=== PATIENT | male | born 1970 ===

== ENCOUNTER 2016-10-22 20:45 | Inpatient (IN) ==
[~2016-10-22 20:45] MED LIST: DOPamine 800 MG/250 ML PREMIX IV STA
[2016-10-22] MEDS ORDERED: DOPamine 800 MG/250 ML PREMIX IV ONE (20:47)
[2016-10-22] MEDS ORDERED: PROPOFOL 1,000 MG/100 ML BOTTLE IV ONE (20:51)
[2016-10-22] MEDS ORDERED: EPINEPHrine 1 MG/10 ML SYRINGE ONE (20:52)
[2016-10-22] MEDS ORDERED: ASPIRIN 325 MG TABLET PO STA (21:10)
[2016-10-22] MEDS ORDERED: PHENYLEPHRINE DRIP 40 MG/250 ML PREMIX IV ONE (21:17)
[2016-10-22] MEDS ORDERED: PHENYLEPHRINE DRIP 40 MG/250 ML PREMIX IV STA (21:20)
--- NOTE | 2016-10-22 21:31 | XRay Report ---
Exam: XR chest 1V portable Date: 10/22/2016 9:10 PM Indication: Chest pain Comparison: 08/17/2015 Technical: AP portable Findings:: Endotracheal tube has been placed. Nasogastric tube has been placed the distal tip appears to be in the distal esophagus. Cardiomegaly is present. A backboard superimposes exam. Alveolar edema and infiltrates are present bilaterally. The epidural catheter leads demonstrated on previous examination are no longer seen. No pneumothorax. Impression: 1. Endotracheal tube at the mid clavicle nasogastric tube in the distal esophagus, advancement the nasogastric tube approximately 4 to 5 cm recommended 2. Alveolar edema in the central perihilar regions and/or infiltrates. 3. Removal of the epidural catheter leads PROCEDURE INTERPRETED AT [facility] DEPARTMENT OF RADIOLOGY Final Report Signed by: Dr. Reji Guillaume
[2016-10-22 21:36] LABS: ABG Base Excess -23.5 MMOL/L (-2.5-2.5); ABG HCO3 7.8 MMOL/L (20-26); ABG Oxygen Saturation 73.7 % (95-100); ABG PCO2 63.1 MM HG (35-48); ABG PO2 66.2 MM HG (80-95); ABG TCO2 11.5 MMOL/L (23-27)
[2016-10-22 21:39] LABS: ABG PH 6.853 (7.35-7.45)
--- NOTE | 2016-10-22 21:39 | Emergency Department Note ---
Gilberto Santiago Sierra, am scribing for, and in the presence of, Lizette Vazquez DO 21:09. IGeorge Catherine, DO, personally performed the services described in this documentation, ascribed by Marisa Macias in my presence, and it is both accurate and complete . Arrival - Arrival Chief Complaint: Shortness of Breath ED Nursing Triage Note: patient received via [facility] with resp. failure. patien intubated and sedated at this time Mode of Arrival: Stretcher Limitations: Physical Limitation (pt is intubated) Source: EMS, RN Notes Reviewed - History of Present Illness HPI Narrative: Pt is a 45 y/o male that arrived at the ED via [place] [facility] for respiratory failure. History unattained due to pt being intubated on the ventilator and sedated upon arrival. EMS reports pt was coded for 15 STICK WELDER and [place] worked the code for 15 minutes. Pt initially had vitals when arrived but went into cardiac arrest again. Onset (ago): minute(s) Consistency: constant Severity: severe Severity scale (1-10): 10 Quality: other Allergies/Adverse Reactions: Allergies Allergy/AdvReac Type Severity Reaction Status Date / Time No Known Allergies Allergy Verified 04/26/15 09:38 Home Medications: Home Medications Medication Instructions Recorded Confirmed Type Gabapentin 600 mg PO DAILY 04/22/15 08/16/15 History HYDROcodone/ACETAMIN 10-325 [Marcella 1 tablet PO TID 04/22/15 12/31/15 History 10-325] Lisinopril [Prinivil] 20 mg PO DAILY 04/22/15 12/28/15 History NovoLOG Mix 70-30 FlexPen 40 units SUBCUT AC BREAKFAST 04/22/15 12/31/15 History NovoLOG Mix 70-30 FlexPen 60 units SUBCUT BEDTIME 04/22/15 12/31/15 History Duloxetine HCl [Duloxetine] 60 mg PO DAILY 08/17/15 12/31/15 History Review of System - Review of System ROS unobtainable: other (ROS unattained due to being intubated and sedated on arrival) Medical,Surgical,& Family Hx - Medical History Cardio: History of: Hypertension Psychological: History of: Depression No history of: Previous Suicide Attempt Neurology: No history of: Seizures HEENT: History of: Dental Problems ([place] coming loose) Endocrine: History of: Diabetes Mellitus (IDDM), Diabetes Mellitus (NIDDM) Respiratory: History of: COPD, Obstructive Sleep Apnea, Pneumonia, Respiratory Problems (resp failure) Genitourinary: History of: Recurring Urinary Tract Infections Gastrointestinal: History of: GERD, GI Problems (Abdominal pain, epigastric pain and dysphagia) Musculoskeletal: History of: Back/Neck Problems (BACK SURGERY), Musculoskeletal Problems (Arthritis) - Surgical History HEENT Surgeries: Surgical HX of: Tonsilectomy & Adenoidectomy (Tonsils) Abdominal Surgeries: Surgical HX of: Abdominal Surgery, Cholecystectomy (2015), Colonoscopy, EGD Reproductive Surgeries: Patient denies;: Genitourinary Surgery Orthopedic Surgeries: Surgical HX of;: Implanted Devices (Spinal cord stimulator RIGHT side), Orthopedic Surgery (back surgery), Spinal Surgery - Family History Family History: Reports;: Family Diabetes (Mother) - Social History Smoking Status: Unknown if ever smoked Marital Status: Unknown Exam - General Exam limited due to: other (pt is intubated and sedated at arrival) General appearance: obtunded - Head Head exam: Present: atraumatic - Eye Eye exam: Present: other (pupils fixed and no corneal reflex noted) - Neck Neck exam: Present: normal inspection - Chest Chest inspection: Present: normal inspection, symmetric chest wall rise - Respiratory Respiratory exam: Present: normal lung sounds bilaterally - Cardiovascular Cardiovascular exam: Present: regular rate, other (wide complex) - Abdominal Exam Abdominal exam: Present: soft, normal bowel sounds. Absent: distention, tenderness, guarding, rebound - Extremities Exam Extremities exam: Present: normal inspection - Neurological Exam Neurological exam: Present: other (unresponsive) - Skin Skin exam: Present: other (cool to touch) Course Course Narrative: This is a 45-year-old male who is transferred in from the [facility] in full cardiac arrest. He was resuscitated initially at their hospital and upon transfer was on a dopamine drip and did have vital signs. Shortly after arriving in the emergency room the patient went into another arrest situation it was an asystolic arrest this time we did do CPR he was given epinephrine with spontaneous return of a pulse and blood pressure. The patient was continued on pressors near was added. We have drawn labs chest x-ray has been obtained. The patient was placed on the cooling blanket. Dr. Perez who is on- call for the hospitalist service has recommended we contact cardiology director validation. Dr. Acuña has been notified and is in the ER evaluating the patient. The patient remains unchanged he has no response whatsoever. He is on 2 pressors at this time and his condition is critical. The plan is as taken to the Certified Technician at this time to see if there are any lesions to be corrected. There are no family members available for any information at this time. - Reevaluation(s) Reevaluation #1: Dr. Perez also notified that he is a polysubstance overdose . - Consultations Consultation #1: Dr. Roberts is in the er to evaluate the patient Critical Care Time Critical Care Time: Yes Total Critical Care Time: 30 Disposition Clinical Impression: Cardiac arrest, Acute NC, Polysubstance abuse Disposition: Still a Patient Condition: Stable Time of Disposition: 21:38
[2016-10-22 21:40] LABS: Basophils % 0.2 % (0.0-0.8); Eosinophils % 0.1 % (0.00-10.9); Hematocrit 35.7 VOL% (42.0-52.0); Hemoglobin 10.7 GM/DL (14.0-18.0); Immature Granulocytes % 1.3 %; Immature Granulocytes Absolute 0.14 #; Lymphocytes # 2.3 10*3/uL (1.4-4.0); Lymphocytes % 20.4 % (21.2-54.2); Mean Corpuscular Hemoglobin 30 PG (27-34); Mean Corpuscular Volume 98.9 FL (87-102); Mean Platelet Volume 9.9 FL (9.6-12.0); Monocytes # 0.2 10*3/uL (0.11-0.8); Monocytes % 1.9 % (1.7-12.7); Neutrophils # 8.4 10*3/uL (1.4-7.4); Neutrophils % 76.1 % (38.7-73.9); Platelet Count 231 T/CUMM (130-400); Red Blood Count 3.61 MC/CUMM (3.8-5.5); Red Cell Distribution Width 12.7 % (9.3-17.3); White Blood Count 11.1 T/CUMM (4-12)
[2016-10-22 21:52] LABS: INR 1.2; PT Patient Result 13.3 SECS
[2016-10-22] MEDS ORDERED: SODIUM BICARBONATE 50 MEQ/50 ML SYRINGE IV ONE (21:58)
[2016-10-22] MEDS ORDERED: ASPIRIN 300 MG SUPP RECTAL ONE (21:59)
[2016-10-22] MEDS ORDERED: SODIUM BICARBONATE 50 MEQ/50 ML VIAL IV STA (22:00)
[2016-10-22 22:03] LABS: Partial Thromboplastin Time 41.1 SECS (0-40)
[2016-10-22] MEDS ORDERED: HEPARIN/NACL 0.9% 2 UNITS/ML 1,500 ML IV ONE (22:05)
[2016-10-22] MEDS ORDERED: LIDOCAINE 1% 20 ML VIAL ONE (22:05)
--- NOTE | 2016-10-22 22:05 | Cardiology History & Physical ---
Assessment and Plan (1) Polysubstance abuse Status: Acute Assessment and plan: He appears to have a drug overdose with multiple substances. Current Visit: Yes (2) Cardiac arrest Status: Acute Assessment and plan: This appears to be related to the polysubstance ingestion. We will rule out a thrombotic event with a cardiac catheterization. Current Visit: Yes (3) Hypertension Status: Chronic Assessment and plan: Currently hypotensive, we will provide supportive care. Current Visit: Yes (4) Diabetes mellitus Status: Chronic Current Visit: No Qualifiers: Diabetes mellitus type: type 2 (5) Renal failure, acute Status: Acute Assessment and plan: Likely secondary to the acute events. Current Visit: Yes (6) Acidemia Status: Acute Assessment and plan: This is likely secondary to his acute events and diffuse hypoperfusion. We'll support him as possible. Current Visit: Yes History of Present Illness Chief complaint: CARDIOPULMONARY ARREST History of present illness: The patient is evaluated emergently in the emergency room. I have discussed the case with the [place] emergency room doctor, the [facility] emergency room doctor, the patient's family, and I have retrieved my previous clinic note from 10/13/2016 from the [facility] to assemble a history on this patient. Mr. Lopez is a 45 year old male without a prior cardiac history. Comorbidities include diabetes mellitus, hypertension, history of grade 3 esophagitis. He was "found down" by a cousin who is a nurse, at his home. I'm told that when she initially palpated his pulse it was weak and thready, she activated EMS and they initiated CPR. Upon their arrival there was no significant pulse or blood pressure so he was intubated and resuscitative measures ensued. He was brought to the emergency room where he "coded" again. He was given some epinephrine and atropine, and thereafter developed ventricular fibrillation which responded to a lidocaine drip. He was then transferred to our hospital, and he "coded" again upon arrival here. This was a bradycardia that degenerated into asystole. At the time of my arrival he is intubated, unresponsive, on dopamine and Alexander-Synephrine pressors. His systolic blood pressures in the mid 80s. He was evaluated in clinic 10/13/2016 by me for presyncope and shortness of breath. He was having spells where he felt weak in the legs and they began to shake as if he was having a seizure, and this caused him to fall. This presentation was complicated by his chronic low back pain and weak legs. He did acknowledge some dyspnea on exertion and a decline in his overall exercise tolerance for the preceding 2 months. He denied any palpitations, tachycardia, arrhythmias, or chest pain. Echocardiogram was performed last week which overall was unremarkable. I'm unable to obtain any further history, other than the patient had been in some pain in his back and legs recently. Laboratory data is reviewed from [facility] which includes a white count of 12.1, hemoglobin 10.9, creatinine 3.9, troponin I 0.18, CK-MB 3.3, myoglobin 689, pro BNP 1636, CPK of 275. EKGs show a wide complex regular sinus rhythm with at times what appears to be a right bundle branch block. Some of the EKG showed suggest some anterior ST elevation. Urine drug screen was positive for multiple substances including PCP and methamphetamines. I have discussed the patient's very grim prognosis with the family. His current pH is 6.9. I have discussed the role, risks and benefits of cardiac catheterization with the patient's family and they voiced understanding. I have told him that he may not survive to the Auto Phone Installer, or through the procedure given his grave presentation. I have also discussed this case with Dr. Devlin who has agreed to accept the patient for admission should he survive. The patient has been placed on the hypothermia protocol. Given his very young age we will proceed with all measures. Because he is in acute renal failure we will try to minimize contrast exposure. Home Medications Medication Instructions Recorded Confirmed Type Gabapentin 600 mg PO DAILY 04/22/15 08/16/15 History HYDROcodone/ACETAMIN 10-325 [[place] 1 tablet PO TID 04/22/15 12/31/15 History 10-325] Lisinopril [Prinivil] 20 mg PO DAILY 04/22/15 12/28/15 History NovoLOG Mix 70-30 FlexPen 40 units SUBCUT AC BREAKFAST 04/22/15 12/31/15 History NovoLOG Mix 70-30 FlexPen 60 units SUBCUT BEDTIME 04/22/15 12/31/15 History Duloxetine HCl [Duloxetine] 60 mg PO DAILY 08/17/15 12/31/15 History Allergies Allergy/AdvReac Type Severity Reaction Status Date / Time No Known Allergies Allergy Verified 04/26/15 09:38 ROS unobtainable: due to endotracheal tube, due to mental status Medical,Surgical,& Family Hx - Medical History Cardio: History of: Hypertension Psychological: History of: Depression No history of: Previous Suicide Attempt Neurology: No history of: Seizures HEENT: History of: Dental Problems ([place] coming loose) Endocrine: History of: Diabetes Mellitus (IDDM), Diabetes Mellitus (NIDDM) Respiratory: History of: COPD, Obstructive Sleep Apnea, Pneumonia, Respiratory Problems (resp failure) Genitourinary: History of: Recurring Urinary Tract Infections Gastrointestinal: History of: GERD, GI Problems (Abdominal pain, epigastric pain and dysphagia) Musculoskeletal: History of: Back/Neck Problems (BACK SURGERY), Musculoskeletal Problems (Arthritis) - Surgical History HEENT Surgeries: Surgical HX of: Tonsilectomy & Adenoidectomy (Tonsils) Abdominal Surgeries: Surgical HX of: Abdominal Surgery, Cholecystectomy (2015), Colonoscopy, EGD Reproductive Surgeries: Patient denies;: Genitourinary Surgery Orthopedic Surgeries: Surgical HX of;: Implanted Devices (Spinal cord stimulator RIGHT side), Orthopedic Surgery (back surgery), Spinal Surgery - Family History Family History: Reports;: Family Diabetes (Mother) - Social History Smoking Status: Unknown if ever smoked Frequency of Alcohol Use: Unknown Type of Drug Use: Unknown Marital Status: Single Lives With:: aunt Functional capacity: independent ambulation Cardiology Physical Exam - Constitutional Vitals: Vital Signs Temp Pulse Resp BP Pulse Ox 92 F L 63 16 68/36 72 L 10/22/16 20:45 10/22/16 20:45 10/22/16 21:30 10/22/16 20:45 10/22/16 20:45 Intake and Output 10/22/16 10/22/16 10/22/16 07:59 15:59 23:59 Other: Weight 108.862 kg Patient Weight 10/22/16 23:59 Weight 108.862 kg Exam: General appearance: normal weight, no acute distress, intubated, unresponsive. - Head Head exam: Present: normocephalic, atraumatic,. Absent: hematoma, laceration - Eye Eye exam: Absent: conjunctival injection, nystagmus, periorbital swelling, scleral icterus, laceration to eyelids Pupils: Present: Pupils are dilated bilaterally and only minimally responsive, he is status post atropine administration. Absent: constricted, irregular, unequal - ENT ENT exam: Present: normal exam, normal external ear exam - Neck Neck exam: Present: Endotracheal tube in place. Absent: lymphadenopathy, meningismus, tenderness, thyromegaly - Respiratory Respiratory exam: Present: clear to auscultation bilaterally anteriorly, there is normal rise with ventilated breaths. Absent: accessory muscle use - Cardiovascular Cardiovascular exam: Present: regular rate and rhythm. Absent: carotid bruit, gallop, JVD, rubs - GI/Abdominal GI/Abdominal exam: Present: Hypoactive bowel sounds. Absent: distended, firm, guarding, hernia, mass, tenderness, rebound, soft - Extremities Exam Extremities exam: Present: They're cold with minimally palpable pulses in all 4 extremities. Absent: edema - Back Exam Back exam: Unable to assess due to patient being on the ventilator - Neurological Exam Neurological exam: Unable to fully assess due to patient being on the ventilator. She does appear to move all 4 extremities. - Psychiatric Psychiatric exam: Unable to assess due to patient being on the ventilator. - Skin Skin exam: Present: Pale, cool, dry, intact. Absent: cyanosis, diaphoretic, rash, urticaria Result/EKG - Labs CBC & BMP: 10/22/16 21:37 Lab Results: I have reviewed the past 24 hour labs Labs: Laboratory Results - last 24 hr 10/22/16 10/22/16 21:34 21:37 WBC 11.1 RBC 3.61 L Hgb 10.7 L Hct 35.7 L MCV 98.9 MCH 30 MCHC 30.0 L RDW 12.7 Plt Count 231 MPV 9.9 Neut % (Auto) 76.1 H Lymph % (Auto) 20.4 L Wharton % (Auto) 1.9 Eos % (Auto) 0.1 Baso % (Auto) 0.2 Neut # (Auto) 8.4 H Lymph # (Auto) 2.3 Wharton # (Auto) 0.2 Eos # (Auto) 0.0 Baso # (Auto) 0.0 Immature Gran % 1.3 Nucleated RBC % 0.0 Immature Gran # 0.14 Nucleated RBCs # 0.00 ABG pH 6.853 L* ABG pCO2 63.1 H ABG pO2 66.2 L ABG HCO3 7.8 L ABG Total CO2 11.5 L ABG O2 Saturation 73.7 L ABG Base Excess -23.5 L - Diagnostic Findings Procedure: Chest x-ray: report reviewed by me, image reviewed by me - EKG EKG results: interpreted by me, sinus rhythm (wide complex with some right bundle branch block, some anterior ST elevation)
[2016-10-22] MEDS ORDERED: SODIUM BICARBONATE 2.4 MEQ/5 ML VIAL ONE ×2 (22:06→22:36)
[2016-10-22 22:10] LABS: Bilirubin,Total 0.6 MG/DL (0.2-1.0); Calcium 8.5 MG/DL (8.5-10.1); Osmolality,Calculated 291.4 MOS/KG (273-304); Potassium 4.2 MMOL/L (3.5-5.1); Total Protein 6.2 G/DL (6.4-8.3)
[2016-10-22] MEDS ORDERED: DEXTROSE 50% 25 GM/50 ML VIAL IV PRN (23:02)
[2016-10-22] MEDS ORDERED: GLUCAGON 1 MG VIAL IM PRN (23:02)
[2016-10-22 23:05] LABS: ABG Base Excess -18.8 MMOL/L (-2.5-2.5); ABG HCO3 10.3 MMOL/L (20-26); ABG Oxygen Saturation 71.2 % (95-100); ABG PCO2 58.3 MM HG (35-48); ABG PO2 54.7 MM HG (80-95); ABG TCO2 13.4 MMOL/L (23-27)
[2016-10-22] MEDS: SODIUM BICARB INJ 100 MEQ in SODIUM CHLORIDE 0.45% 1,000 ML IV SCH (23:06)
[2016-10-22 23:08] LABS: ABG PH 6.974 (7.35-7.45)
--- NOTE | 2016-10-22 23:15 | Cardiology Operative Report ---
Date of Procedure:: 10/22/16 Pre-op diagnosis: cardiopulmonary arrest Post-op diagnosis: other (angiographically normal right dominant coronary arteries) Procedure: 1. Selective left and right coronary angiography. 2. Placement of right femoral central venous triple-lumen catheter. Impression: 1. [ Angiographically normal coronary arteries.] 2. Left dominant coronary arteries. Plan: 1. Supportive care. Equipment: [Diagnostic 4 [place] JL4, JR4 catheters, triple-lumen catheter]. Hemodynamics: Aortic pressure [57/45] mmHg[] Procedure: After informed consent was obtained the patient was prepped and draped in sterile fashion. The [right] femoral vein was accessed via modified Seldinger technique using a micropuncture needle and a triple-lumen catheter was placed. Thereafter, the right femoral artery was accessed via modified Seldinger technique using a micropuncture needle and a 4 [place]ian femoral arterial sheath was placed. All catheter exchanges were performed over a guidewire under fluoroscopic guidance. Diagnostic [6 [place]ian JL4 and JR4] catheters were advanced to the left and right coronary arteries respectively and multiple cineangiograms were performed in varying degrees of obliquity and angulation. Findings: 1. The left main artery [is angiographically normal]. 2. The left anterior descending artery [extends to the apex and wraps around.] [It is angiographically normal.] 3. There [is] an intermediate ramus branch that is a moderate caliber, branching, and free of significant disease. 4. The circumflex artery is a dominant vessel, and angiographically normal. It gives rise to the posterolateral and posterior descending arteries. 5. The right coronary artery is a small, nondominant vessel, angiographically normal. Contrast use: Visipaque 33 cc Fluoro time: 1.3 minutes Complications: [none] Specimens removed: [none] Devices implanted: Arterial sheath left in place for a line use, triple-lumen catheter left in place to administer IV medications. Anesthesia: other (none, pt unresponsive) Surgeon / Physician: Flora Acuña Outsole Molder: none (Stu Luque) Estimated blood loss: minimal Specimens: none sent Condition: critical Disposition: ICU/CCU
[2016-10-22] MEDS ORDERED: HEPARIN/NACL 0.9% 2 UNITS/ML 500 ML IV ONE (23:21)
--- NOTE | 2016-10-22 23:39 | Hospitalist History & Physical ---
Assessment and Plan (1) Cardiac arrest Status: Acute Current Visit: Yes (2) Acute respiratory failure with hypoxia Status: Acute Current Visit: Yes (3) Anoxic brain injury Status: Acute Current Visit: Yes (4) Acute renal failure Status: Acute Current Visit: Yes Qualifiers: Acute renal failure type: with acute tubular necrosis Qualified Code(s): N17.0 - Acute kidney failure with tubular necrosis (5) Polysubstance abuse Status: Acute Current Visit: Yes (6) Diabetes mellitus Status: Chronic Current Visit: No Qualifiers: Diabetes mellitus type: type 2 (7) Hypertension Status: Chronic Assessment and plan: Plan: Admit to ICU, prognosis overall is poor. He is now on maximum dose of 2 pressors, and has been unresponsive with fixed and dilated pupils. CT of the brain is pending. We have begun targeted temperature management in addition to ventilatory support. He is showing evidence of multiorgan failure given his cardiac arrest, respiratory failure, anoxic brain injury, and acute renal failure. Dr. Acuña has Felipe spoken to the family about his grim prognosis. Current Visit: Yes History of Present Illness Chief complaint: Status post cardiac arrest, "found down at home" History of present illness: Mr. Lopez is a 45 year old [place] male with diabetes, hypertension, and esophagitis. He was "found down" at home by a family member who is also a nurse. According to my discussion with the hide sorter and the ER nurse, family member started CPR immediately and called EMS, and on their arrival he was intubated. He was brought to the outside ER where he lost a pulse and was coded again. He apparently developed V. fib which responded to a lidocaine infusion. He was then transferred to our hospital, and he had an asystole arrest in our emergency room. On my exam he is intubated, on 2 pressors and unresponsive. His systolic blood pressure is approximately 70s-80s. He was evaluated in clinic 10/13/2016 by me for presyncope and shortness of breath. Echocardiogram was performed last week which overall was unremarkable. Patient cannot provide history due to his current unresponsive state, family was not able to be reached during my exam. According to cardiology's interpretation, EKGs show a wide complex regular sinus rhythm with at times what appears to be a right bundle branch block. Some of the EKG showed suggest some anterior ST elevation. Urine drug screen is positive for PCP and methamphetamines. I discussed the case with Dr. Acuña who took him for left heart cath which showed angiographically unremarkable coronary arteries. I agreed to admit the patient to the hospitalist service. We have begun targeted temperature management. CODE BLUE note: Around 1120 p.m. the patient was transferred to the ICU at which time he again lost the pulse. ACLS was immediately started, and after 1 round of epinephrine chest compressions for approximately 3-4 minutes, he regained spontaneous circulation. Time coordinating care in the ICU as well as running the CODE BLUE was approximately 30 minutes. Home Medications Medication Instructions Recorded Confirmed Type Gabapentin 600 mg PO DAILY 04/22/15 08/16/15 History HYDROcodone/ACETAMIN 10-325 [[place] 1 tablet PO TID 04/22/15 12/31/15 History 10-325] Lisinopril [Prinivil] 20 mg PO DAILY 04/22/15 12/28/15 History NovoLOG Mix 70-30 FlexPen 40 units SUBCUT AC BREAKFAST 04/22/15 12/31/15 History NovoLOG Mix 70-30 FlexPen 60 units SUBCUT BEDTIME 04/22/15 12/31/15 History Duloxetine HCl [Duloxetine] 60 mg PO DAILY 08/17/15 12/31/15 History Allergies Allergy/AdvReac Type Severity Reaction Status Date / Time No Known Allergies Allergy Verified 04/26/15 09:38 Medical,Surgical,& Family Hx - Medical History Cardio: History of: Hypertension Psychological: History of: Depression No history of: Previous Suicide Attempt Neurology: No history of: Seizures HEENT: History of: Dental Problems ([place] coming loose) Endocrine: History of: Diabetes Mellitus (IDDM), Diabetes Mellitus (NIDDM) Respiratory: History of: COPD, Obstructive Sleep Apnea, Pneumonia, Respiratory Problems (resp failure) Genitourinary: History of: Recurring Urinary Tract Infections Gastrointestinal: History of: GERD, GI Problems (Abdominal pain, epigastric pain and dysphagia) Musculoskeletal: History of: Back/Neck Problems (BACK SURGERY), Musculoskeletal Problems (Arthritis) - Surgical History HEENT Surgeries: Surgical HX of: Tonsilectomy & Adenoidectomy (Tonsils) Abdominal Surgeries: Surgical HX of: Abdominal Surgery, Cholecystectomy (2015), Colonoscopy, EGD Reproductive Surgeries: Patient denies;: Genitourinary Surgery Orthopedic Surgeries: Surgical HX of;: Implanted Devices (Spinal cord stimulator RIGHT side), Orthopedic Surgery (back surgery), Spinal Surgery Additional Surgical History: Unable to obtain due to patient being unresponsive/ intubated - Family History Family History: Reports;: Family Diabetes (Mother) - Social History Smoking Status: Unknown if ever smoked Frequency of Alcohol Use: Unknown Type of Drug Use: Unknown Marital Status: Unknown Review of systems: Unable to obtain due to patient intubated Exam - Constitutional Exam: EXAM: CONSTITUTIONAL: Intubated, comatose HEENT: NC, AT, pupils 4-5 mm and unresponsive CV: RRR no m/g/r RESP: clear B/L, no w/r/r GI: abd soft, ND, + hypoactive bowel sounds INTEGUMENTARY: no lesions or rash EXTREMITIES: no c/c/e NEURO: No corneal reflex, no gag reflex, pupils fixed and dilated PSYCH: Unable to obtain due to current mental status/intubated Results - Labs CBC & BMP: 10/22/16 21:37 10/22/16 20:45 Lab Results: I have reviewed the past 24 hour labs - EKG EKG shows: sinus rhythm - Diagnostic Findings Procedure: Chest x-ray: image reviewed by me, report reviewed by me, CT: pending
[2016-10-23] MEDS ORDERED: INSULIN REGULAR 100 UNIT/ML SUBCUT SCH
[2016-10-23] MEDS ORDERED: INSULIN REGULAR 100 UNIT/ML IV SCH
[2016-10-23 00:16] LABS: ABG Base Excess -16.5 MMOL/L (-2.5-2.5); ABG HCO3 14.5 MMOL/L (20-26); ABG Oxygen Saturation 76.6 % (95-100); ABG PCO2 58.1 MM HG (35-48); ABG PO2 58.3 MM HG (80-95); ABG TCO2 16.2 MMOL/L (23-27)
[2016-10-23 00:18] LABS: ABG PH 7.014 (7.35-7.45)
[2016-10-23] MEDS ORDERED: fentaNYL 100 MCG/2 ML VIAL IV ONE (00:27)
[2016-10-23] MEDS ORDERED: SODIUM CHLORIDE 0.9% 1,000 ML IV ONE (00:27)
[2016-10-23] MEDS ORDERED: MIDAZOLAM 2 MG/2 ML VIAL IV ONE (00:28)
[2016-10-23] MEDS: fentaNYL INJ 1,250 MCG in SODIUM CHLORIDE 0.9% 225 ML IV SCH ×5 (00:30→23:25)
[2016-10-23] MEDS: CISATRACURIUM 200 MG in SODIUM CHLORIDE 0.9% 100 ML IV SCH ×2 (00:31→23:26)
[2016-10-23] MEDS: MIDAZOLAM 100 MG in SODIUM CHLORIDE 0.9% 80 ML IV SCH ×2 (00:33→23:25)
[2016-10-23] MEDS: PANTOPRAZOLE 40 MG VIAL IV SCH ×3 (00:35→21:15)
[2016-10-23] MEDS: DOPamine 800 MG/250 ML PREMIX IV SCH ×5 (00:42→23:45)
[2016-10-23] MEDS ORDERED: INSULIN REGULAR DRIP 100 ML IV ONE (01:53)
[2016-10-23] MEDS ORDERED: PHENYLEPHRINE DRIP 40 MG/250 ML PREMIX IV SCH ×2 (02:00)
[2016-10-23] MEDS: INSULIN REGULAR DRIP 100 ML IV SCH ×4 (02:17→22:43)
[2016-10-23 02:33] LABS: Platelet Estimate Normal
[2016-10-23 03:41] LABS: ABG Base Excess -17.8 MMOL/L (-2.5-2.5); ABG HCO3 11.2 MMOL/L (20-26); ABG Oxygen Saturation 85.1 % (95-100); ABG PCO2 46.9 MM HG (35-48); ABG PO2 66.4 MM HG (80-95); ABG TCO2 12.4 MMOL/L (23-27)
[2016-10-23 03:43] LABS: ABG PH 7.048 (7.35-7.45)
[2016-10-23 03:58] LABS: Risk Ratio 2.5; VLDL CHOLESTEROL 30.8 MG/DL
[2016-10-23 04:08] LABS: Hematocrit 36.8 VOL% (42.0-52.0); Hemoglobin 11.6 GM/DL (14.0-18.0); Lymphocytes # 0.5 10*3/uL (1.4-4.0); Mean Corpuscular HGB Conc 31.5 GM/DL (32-36); Mean Corpuscular Hemoglobin 30 PG (27-34); Mean Corpuscular Volume 94.6 FL (87-102); Monocytes # 0.1 10*3/uL (0.11-0.8); Monocytes % 2.5 % (1.7-12.7); Neutrophils # 2.2 10*3/uL (1.4-7.4); Neutrophils % 80.5 % (38.7-73.9); Platelet Count 255 T/CUMM (130-400); Red Blood Count 3.89 MC/CUMM (3.8-5.5); Red Cell Distribution Width 12.8 % (9.3-17.3); White Blood Count 2.8 T/CUMM (4-12)
[2016-10-23] MEDS: PHENYLEPHRINE INJ 160 MG in SODIUM CHLORIDE 0.9% 234 ML IV SCH ×2 (04:21→23:14)
[2016-10-23 04:23] LABS: INR 1.3; Partial Thromboplastin Time 36.5 SECS (0-40)
[2016-10-23 04:50] LABS: Magnesium 2.1 MG/DL (1.8-2.4); Osmolality,Calculated 294.4 MOS/KG (273-304); Phosphorous 10.7 MG/DL (2.5-4.9); Potassium 4.5 MMOL/L (3.5-5.1)
[2016-10-23 04:59] LABS: Hypochromasia Slight
[2016-10-23 05:00] LABS: Platelet Estimate Adequate
--- NOTE | 2016-10-23 07:21 | EKG Report ---
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: : 1970 Requested by: Lizette Vazquez Order Number: [id number] Reading MD: TERESO ALVARES Intervals [place] Rate: 78 P: -6 DE: 215 QRS: 75 QRSD: 143 T: 16 QT: 504 QTc: 537 Interpretive Statements SINUS RHYTHM WITH FIRST-DEGREE AVB, WITH FREQUENT SUPRAVENTRICULAR PREMATURE COMPLEXES at 78 bpm INTRAVENTRICULAR CONDUCTION DELAY TYPE 1 BRUGADA PATTERN, EXCLUDE RECENT INFARCTION, CABG, MYOCARDITIS OR DRUG EFFECT (prolonged QTC and conduction delay were not present on previous tracing 08/17/2015) Electronically Signed On 10-24-16 09:55:08 CDT by TERESO ALVARES [id number]
--- NOTE | 2016-10-23 07:24 | Pulmonology Consult Note ---
Assessment and Plan (1) Acute renal failure Status: Acute Assessment and plan: Creatinine is 3.9 slightly better than yesterday. Defer to nephrology. Current Visit: Yes Qualifiers: Acute renal failure type: with acute tubular necrosis Qualified Code(s): N17.0 - Acute kidney failure with tubular necrosis (2) Acute respiratory failure with hypoxia Status: Acute Assessment and plan: Patient remains severely acidotic. He is getting bicarb. I will turn up minute ventilation a little. The acidosis is combined respiratory and metabolic. Current Visit: Yes (3) Anoxic brain injury Status: Acute Assessment and plan: His pupils are dilated and fixed. He is totally unresponsive. He is on Arctic sun. Giving him a couple of days to see if his brain will come around. However prognosis appears poor to me. Current Visit: Yes (4) Cardiac arrest Status: Acute Assessment and plan: He has apparently had 3 cardiac arrest. The cause of the arrest was felt to the polysubstance abuse. No significant coronary disease found at cath. Current Visit: Yes (5) Polysubstance abuse Status: Acute Assessment and plan: Likely the cause of his arrest. Current Visit: Yes (6) Diabetes mellitus Status: Chronic Assessment and plan: Sliding scale insulin. Current Visit: No Qualifiers: Diabetes mellitus type: type 2 History of Present Illness Chief complaint: Cardiac arrest History of present illness: Mr. Lopez is a 45 year old male who apparently has had 3 different cardiac arrest. He was found at home unresponsive and had CPR started at home yesterday. He was intubated by emergency personnel and then had another arrest in [place] and 1 here as I understand. He currently is on the ventilator is totally unresponsive. He had cardiac catheterization yesterday with no significant coronary disease found. He did have positive urine for PCP and methamphetamines, multiple substances. He has a history of chronic pain as implanted in his back for radicular pain. He is not able to give any history at present. I was asked to see him for ventilator management. Home Medications Medication Instructions Recorded Confirmed Type Gabapentin 600 mg PO DAILY 04/22/15 08/16/15 History HYDROcodone/ACETAMIN 10-325 [[place] 1 tablet PO TID 04/22/15 12/31/15 History 10-325] Lisinopril [Prinivil] 20 mg PO DAILY 04/22/15 12/28/15 History NovoLOG Mix 70-30 FlexPen 40 units SUBCUT AC BREAKFAST 04/22/15 12/31/15 History NovoLOG Mix 70-30 FlexPen 60 units SUBCUT BEDTIME 04/22/15 12/31/15 History Duloxetine HCl [Duloxetine] 60 mg PO DAILY 08/17/15 12/31/15 History Allergies Allergy/AdvReac Type Severity Reaction Status Date / Time No Known Allergies Allergy Verified 04/26/15 09:38 ROS unobtainable: due to endotracheal tube, due to mental status Exam (Pulmonay) H&P - Constitutional Vitals: Period Temp Pulse Resp BP Sys/Sequeira Pulse Ox Last 24 Hr 90.2 F-95.5 F 77-108 20-20 100-173/39-84 75-94 Exam: Blood pressure is around 120 systolic but he is on 2 pressors. His pupils were dilated and fixed. Patient is totally unresponsive. He is on the [employer] cooling system. Temperature is about 92, respirations that of the ventilator which is 20. Orotracheal tube in place. Neck supple. Chest shows a few rhonchi bilaterally. Heart rapid rate normal rhythm no murmurs. Abdomen soft, no masses, no bowel sounds. Extremities no clubbing cyanosis or edema. Medical,Surgical,& Family Hx - Medical History Cardio: History of: Hypertension Psychological: History of: Depression No history of: Previous Suicide Attempt Neurology: No history of: Seizures HEENT: History of: Dental Problems ([place] coming loose) Endocrine: History of: Diabetes Mellitus (IDDM), Diabetes Mellitus (NIDDM) Respiratory: History of: COPD, Obstructive Sleep Apnea, Pneumonia, Respiratory Problems (resp failure) Genitourinary: History of: Recurring Urinary Tract Infections Gastrointestinal: History of: GERD, GI Problems (Abdominal pain, epigastric pain and dysphagia) Musculoskeletal: History of: Back/Neck Problems (BACK SURGERY), Musculoskeletal Problems (Arthritis) - Surgical History HEENT Surgeries: Surgical HX of: Tonsilectomy & Adenoidectomy (Tonsils) Abdominal Surgeries: Surgical HX of: Abdominal Surgery, Cholecystectomy (2015), Colonoscopy, EGD Reproductive Surgeries: Patient denies;: Genitourinary Surgery Orthopedic Surgeries: Surgical HX of;: Implanted Devices (Spinal cord stimulator RIGHT side), Orthopedic Surgery (back surgery), Spinal Surgery - Family History Family History: Reports;: Family Diabetes (Mother) - Social History Smoking Status: Unknown if ever smoked Frequency of Alcohol Use: Unknown Type of Drug Use: Unknown Results - Labs CBC & BMP: 10/23/16 03:15 10/23/16 03:12 Lab Results: I have reviewed the past 24 hour labs - Diagnostic Findings Procedure: Chest x-ray: image reviewed by me (Patchy bilateral infiltrates. ET tube good position.)
[2016-10-23] MEDS: HYDROCORTISONE 100 MG VIAL IV SCH ×3 (07:40→23:21)
--- NOTE | 2016-10-23 07:41 | XRay Report ---
Referring Physician: Flora Acuña MD Exam: XR chest 1V portable Date: October 23, 2016 at 3:07 AM Reason: Intubated Comparison: Chest one view portable October 22, 2016 Findings: An endotracheal tube and feeding tube are again in place. There is borderline cardiomegaly. Scattered opacities are present within both lungs. This likely represents atelectasis and pulmonary edema, but superimposed pneumonia is not excluded. No pneumothorax is identified, but there may be minimal right pleural fluid. The osseous structures appear stable. Impression: There is improved aeration of the left lung, but there may be slight increased opacification/atelectasis at the right upper lobe. Comparison is somewhat difficult due to overlying devices. PROCEDURE INTERPRETED AT [facility] DEPARTMENT OF RADIOLOGY Final Report Signed by: Dr. Norm Brooks
[2016-10-23] MEDS: CLINDAMYCIN INJ 600 MG in PREMIX 1 EACH IV SCH ×3 (07:45→23:21)
[2016-10-23] MEDS: SODIUM BICARB INJ 100 MEQ in SODIUM CHLORIDE 0.45% 1,000 ML IV SCH ×3 (08:05→21:13)
[2016-10-23] MEDS ORDERED: INSULIN REGULAR 100 UNIT/ML IV ONE (08:25)
[2016-10-23] MEDS ORDERED: LEVOFLOXACIN INJ 250 MG in PREMIX 1 EACH IV SCH (09:00)
--- NOTE | 2016-10-23 09:14 | Hospitalist Progress Note ---
Assessment and Plan (1) Anoxic brain injury Status: Acute Assessment and plan: 1)S/P multiple cardiac arrest with no sig CAD at cath yesterday- on arctic sun, follow protocol, prognosis grim. He was positive for PCP, meth, etc. On merry and dopamine. 2)diabetes- on insulin infusion, bolus with 10U regular now and continue to follow protocol. wean dopamine since it is mixed in D5. 3)respiratory failure- on vent, per Dr Villalobos. 4)mixed resp and metabolic acidosis. getting bicarb. Current Visit: Yes (2) Thrombocythemia Status: Acute Current Visit: No (3) Cardiac arrest Status: Acute Current Visit: Yes (4) Acute [place] Status: Acute Current Visit: Yes (5) Polysubstance abuse Status: Acute Current Visit: Yes (6) Hypertension Status: Chronic Current Visit: Yes (7) Acidemia Status: Acute Current Visit: Yes (8) Acute respiratory failure with hypoxia Status: Acute Current Visit: Yes (9) Acute renal failure Status: Acute Current Visit: Yes Qualifiers: Acute renal failure type: with acute tubular necrosis Qualified Code(s): N17.0 - Acute kidney failure with tubular necrosis (10) Diabetes mellitus Status: Chronic Current Visit: No Qualifiers: Diabetes mellitus type: type 2 Hospitalist: Subjective Interval history: Mr Lopez remains on Arctic sun in cooling phase. He is sedated with versed, fentanyl, and nimbex. Unresponsive. Poor UOP. He had 3 arrests yesterday, prognosis grim. Glucose remains elevated, pharmacy not able to get dopamine in anything other than D5. On insulin drip, use bolus intermittently to get glucose down. Exam - Constitutional Vitals: Period Temp Pulse Resp BP Sys/Sequeira Pulse Ox Last 24 Hr 90.2 F-95.5 F 77-108 20-22 100-173/39-85 75-94 General appearance: no acute distress, over weight - Head Head exam: Present: normocephalic, atraumatic - Eye Eye exam: Absent: EOMI Pupils: Present: fixed - Respiratory Respiratory exam: Present: clear to auscultation bilaterally - Cardiovascular Cardiovascular exam: Present: regular rate and rhythm - GI/Abdominal GI/Abdominal exam: Present: hypoactive bowel sounds, soft. Absent: tenderness - Extremities Exam Extremities exam: Absent: edema - Skin Skin exam: Present: other (cool) Results - Labs CBC & BMP: 10/23/16 03:15 10/23/16 03:12 Lab Results: I have reviewed the past 24 hour labs
[2016-10-23 09:20] LABS: Hematocrit 34.6 VOL% (42.0-52.0); Hemoglobin 11.5 GM/DL (14.0-18.0); Lymphocytes # 0.5 10*3/uL (1.4-4.0); Mean Corpuscular HGB Conc 33.2 GM/DL (32-36); Mean Corpuscular Hemoglobin 30 PG (27-34); Mean Corpuscular Volume 89.6 FL (87-102); Mean Platelet Volume 9.4 FL (9.6-12.0); Monocytes % 0.5 % (1.7-12.7); Neutrophils # 1.3 10*3/uL (1.4-7.4); Neutrophils % 71.5 % (38.7-73.9); Platelet Count 181 T/CUMM (130-400); Red Blood Count 3.86 MC/CUMM (3.8-5.5); Red Cell Distribution Width 12.7 % (9.3-17.3); White Blood Count 1.9 T/CUMM (4-12)
[2016-10-23 09:21] LABS: ABG Base Excess -10.6 MMOL/L (-2.5-2.5); ABG HCO3 15.9 MMOL/L (20-26); ABG Oxygen Saturation 85.7 % (95-100); ABG PCO2 33.2 MM HG (35-48); ABG PH 7.275 (7.35-7.45); ABG PO2 52.6 MM HG (80-95)
[2016-10-23 09:33] LABS: INR 1.4; PT Patient Result 14.6 SECS; Partial Thromboplastin Time 32.4 SECS (0-40)
[2016-10-23 09:46] LABS: Apearance,Urine CLOUDY (Clear); Bilirubin,Urine Negative (Negative); Blood, Urine Small mg/dL (Negative); Glucose,Urine (UA) >=500 mg/dL (Negative); Ketones,Urine 5 mg/dL (Negative); Mucus,Urine Occasional /LPF (Occasional); Nitrite,Urine Negative (Negative); Protein,Urine 100 MG/DL; RBC,Urine 18 /HPF (0-4); Sperm,Urine Many /HPF (Negative); Squamous Epithelial Cell,Urine Occasional /HPF (0-10); Urine Color Yellow (Yellow); Urine Specific Gravity 1.011 (1.001-1.035); Urine Urobilinogen < 2.0 EU/DL (0.2-1.0); WBC,Urine 3 /HPF (0-6)
[2016-10-23 10:00] LABS: CKMB % 3.8 %
[2016-10-23 10:07] LABS: Troponin I Only 1.97 NG/ML (0.00-0.045)
[2016-10-23 10:12] LABS: Calcium 6.2 MG/DL (8.5-10.1); Magnesium 1.6 MG/DL (1.8-2.4); Osmolality,Calculated 294.2 MOS/KG (273-304); Potassium 3.4 MMOL/L (3.5-5.1)
[2016-10-23] MEDS: POTASSIUM CHLORIDE RIDER 20 MEQ in PREMIX 1 EACH IV PRN ×2 (10:30→16:25)
[2016-10-23] MEDS: MAGNESIUM SULF RIDER 1 GM in PREMIX 1 EACH IV PRN ×2 (10:30→21:58)
[2016-10-23 10:35] LABS: Band Neutrophils 11 % (0-10); Lymphocytes 37 % (20-55); Myelocytes 2 %; Segmented Neutrophils 50 % (50-85); Total Cells Counted 100
[2016-10-23 10:36] LABS: Burr Cells Slight; Platelet Estimate Normal
[2016-10-23 15:18] LABS: Basophils % 0.5 % (0.0-0.8); Hematocrit 31.4 VOL% (42.0-52.0); Hemoglobin 10.9 GM/DL (14.0-18.0); Lymphocytes # 0.4 10*3/uL (1.4-4.0); Lymphocytes % 23.6 % (21.2-54.2); Mean Corpuscular HGB Conc 34.7 GM/DL (32-36); Mean Corpuscular Hemoglobin 30 PG (27-34); Mean Corpuscular Volume 85.1 FL (87-102); Mean Platelet Volume 9.8 FL (9.6-12.0); Monocytes # 0.1 10*3/uL (0.11-0.8); Monocytes % 3.8 % (1.7-12.7); Neutrophils # 1.3 10*3/uL (1.4-7.4); Neutrophils % 72.1 % (38.7-73.9); Platelet Count 161 T/CUMM (130-400); Red Blood Count 3.69 MC/CUMM (3.8-5.5); Red Cell Distribution Width 12.6 % (9.3-17.3); White Blood Count 1.8 T/CUMM (4-12)
[2016-10-23 15:28] LABS: INR 1.4; PT Patient Result 15.3 SECS
[2016-10-23 15:53] LABS: CKMB % 5.3 %; Calcium 6.3 MG/DL (8.5-10.1); Magnesium 1.8 MG/DL (1.8-2.4); Potassium 2.8 MMOL/L (3.5-5.1)
[2016-10-23 15:59] LABS: Troponin I Only 3.03 NG/ML (0.00-0.045)
--- NOTE | 2016-10-23 15:59 | Neurology Consult Note ---
History of Present Illness History of present illness: Patient is unable to provide me any history. History basically obtained from the chart. Mr. Lopez is a 45 year old male who apparently has had 3 different cardiac arrest. He was found at home unresponsive and had CPR started at home yesterday. He was intubated by emergency personnel and then had another arrest in [place] and 1 here at [facility]. He currently is on the ventilator is totally unresponsive. He had cardiac catheterization yesterday with no significant coronary disease found. He did have positive urine for PCP and methamphetamines, multiple substances. He has a history of chronic pain as implanted in his back for radicular pain. He is undergoing [facility] sun ( hypothermia) protocol. Home Medications Medication Instructions Recorded Confirmed Type Gabapentin 600 mg PO DAILY 04/22/15 08/16/15 History HYDROcodone/ACETAMIN 10-325 [[place] 1 tablet PO TID 04/22/15 12/31/15 History 10-325] Lisinopril [Prinivil] 20 mg PO DAILY 04/22/15 12/28/15 History NovoLOG Mix 70-30 FlexPen 40 units SUBCUT AC BREAKFAST 04/22/15 12/31/15 History NovoLOG Mix 70-30 FlexPen 60 units SUBCUT BEDTIME 04/22/15 12/31/15 History Duloxetine HCl [Duloxetine] 60 mg PO DAILY 08/17/15 12/31/15 History Allergies Allergy/AdvReac Type Severity Reaction Status Date / Time No Known Allergies Allergy Verified 04/26/15 09:38 ROS unobtainable: due to endotracheal tube, due to mental status Medical,Surgical,& Family Hx - Medical History Cardio: History of: Hypertension Psychological: History of: Depression No history of: Previous Suicide Attempt Neurology: No history of: Seizures HEENT: History of: Dental Problems ([place] coming loose) Endocrine: History of: Diabetes Mellitus (IDDM), Diabetes Mellitus (NIDDM) Respiratory: History of: COPD, Obstructive Sleep Apnea, Pneumonia, Respiratory Problems (resp failure) Genitourinary: History of: Recurring Urinary Tract Infections Gastrointestinal: History of: GERD, GI Problems (Abdominal pain, epigastric pain and dysphagia) Musculoskeletal: History of: Back/Neck Problems (BACK SURGERY), Musculoskeletal Problems (Arthritis) - Surgical History HEENT Surgeries: Surgical HX of: Tonsilectomy & Adenoidectomy (Tonsils) Abdominal Surgeries: Surgical HX of: Abdominal Surgery, Cholecystectomy (2015), Colonoscopy, EGD Reproductive Surgeries: Patient denies;: Genitourinary Surgery Orthopedic Surgeries: Surgical HX of;: Implanted Devices (Spinal cord stimulator RIGHT side), Orthopedic Surgery (back surgery), Spinal Surgery - Family History Family History: Reports;: Family Diabetes (Mother) - Social History Smoking Status: Unknown if ever smoked Frequency of Alcohol Use: Unknown Type of Drug Use: Unknown Exam - Constitutional Vitals: Period Temp Pulse Resp BP Sys/Sequeira Pulse Ox Last 24 Hr 90.2 F-95.5 F 75-108 20-22 90-173/39-85 75-96 Exam: GENERAL: Patient is in no acute distress. NECK: Neck is supple. There is no JVD. No carotid bruits present. No thyroid masses. CVS: First and second heart sounds are normal. There is no S3 present. Regular rate and rhythm. RESPIRATORY: Lungs are clear to auscultation without any rales or rhonchi. ABDOMEN: Soft and non-tender. Bowel sounds are present. There is no hepatosplenomegaly. EXT: There is no palpable edema. Peripheral pulses are present. Skin: No rashes Central Nervous system: General: Sedated Speech: None Comprehension: None Facial expressions: Normal Cranial Nerves: Pupils are small and sluggish. Doll's head eye movements are impaired. Motor: Strength cannot be assessed Sensory: Cannot be assessed Reflexes: Absent and symmetric Cerebellar function: Cannot be assessed Toes: Equivocal Gait: Cannot be assessed Results - Labs CBC & BMP: 10/23/16 15:11 10/23/16 09:00 Assessment and Plan (1) Anoxic brain injury Status: Acute Assessment and plan: Hypoxic/anoxic brain injury secondary to cardiopulmonary arrest Continue current hypothermia protocol We will perform CT of the head without contrast and EEG in the more Prognosis is guarded. Current Visit: Yes
[2016-10-23 18:23] LABS: Band Neutrophils 18 % (0-10); Burr Cells 1+; Lymphocytes 36 % (20-55); Platelet Estimate Normal; Poikilocytosis 2+; Segmented Neutrophils 39 % (50-85); Total Cells Counted 100
[2016-10-23 21:24] LABS: Hematocrit 31.6 VOL% (42.0-52.0); Hemoglobin 10.8 GM/DL (14.0-18.0); Immature Granulocytes % 0.5 %; Immature Granulocytes Absolute 0.01 #; Lymphocytes # 0.5 10*3/uL (1.4-4.0); Lymphocytes % 20.9 % (21.2-54.2); Mean Corpuscular HGB Conc 34.2 GM/DL (32-36); Mean Corpuscular Hemoglobin 29 PG (27-34); Mean Corpuscular Volume 85.6 FL (87-102); Monocytes # 0.1 10*3/uL (0.11-0.8); Monocytes % 5.1 % (1.7-12.7); Neutrophils # 1.6 10*3/uL (1.4-7.4); Neutrophils % 73.5 % (38.7-73.9); Platelet Count 147 T/CUMM (130-400); Red Blood Count 3.69 MC/CUMM (3.8-5.5); Red Cell Distribution Width 12.5 % (9.3-17.3); White Blood Count 2.2 T/CUMM (4-12)
[2016-10-23 21:33] LABS: INR 1.5; PT Patient Result 15.9 SECS; Partial Thromboplastin Time 32.6 SECS (0-40)
[2016-10-23 21:44] LABS: Calcium 5.9 MG/DL (8.5-10.1); Magnesium 1.3 MG/DL (1.8-2.4); Osmolality,Calculated 288.7 MOS/KG (273-304); Potassium 3.1 MMOL/L (3.5-5.1)
[2016-10-23 21:47] LABS: Troponin I Only 3.37 NG/ML (0.00-0.045)
[2016-10-24] MEDS: DOPamine 800 MG/250 ML PREMIX IV SCH ×4 (01:11→23:39)
[2016-10-24] MEDS: PHENYLEPHRINE INJ 160 MG in SODIUM CHLORIDE 0.9% 234 ML IV SCH ×2 (02:06→17:25)
[2016-10-24] MEDS: INSULIN REGULAR DRIP 100 ML IV SCH (02:06)
[2016-10-24 04:17] LABS: ABG HCO3 20.2 MMOL/L (20-26); ABG Oxygen Saturation 87.6 % (95-100); ABG PCO2 29.8 MM HG (35-48); ABG PH 7.407 (7.35-7.45); ABG PO2 56.1 MM HG (80-95); ABG TCO2 16.9 MMOL/L (23-27)
[2016-10-24 04:19] LABS: Eosinophils % 0.3 % (0.00-10.9); Hematocrit 30.1 VOL% (42.0-52.0); Hemoglobin 10.8 GM/DL (14.0-18.0); Immature Granulocytes % 0.3 %; Immature Granulocytes Absolute 0.01 #; Lymphocytes # 0.5 10*3/uL (1.4-4.0); Lymphocytes % 14.1 % (21.2-54.2); Mean Corpuscular HGB Conc 35.9 GM/DL (32-36); Mean Corpuscular Hemoglobin 30 PG (27-34); Mean Corpuscular Volume 83.1 FL (87-102); Mean Platelet Volume 10.1 FL (9.6-12.0); Monocytes # 0.3 10*3/uL (0.11-0.8); Monocytes % 8.1 % (1.7-12.7); Neutrophils # 2.6 10*3/uL (1.4-7.4); Neutrophils % 77.2 % (38.7-73.9); Platelet Count 131 T/CUMM (130-400); Red Blood Count 3.62 MC/CUMM (3.8-5.5); Red Cell Distribution Width 12.7 % (9.3-17.3); White Blood Count 3.3 T/CUMM (4-12)
[2016-10-24 04:28] LABS: INR 1.5; PT Patient Result 16.7 SECS; Partial Thromboplastin Time 35.3 SECS (0-40)
[2016-10-24 05:08] LABS: CKMB % 7.8 %; Calcium 6.2 MG/DL (8.5-10.1); Magnesium 1.6 MG/DL (1.8-2.4); Osmolality,Calculated 285.8 MOS/KG (273-304); Phosphorous 2.6 MG/DL (2.5-4.9); Potassium 3.3 MMOL/L (3.5-5.1)
[2016-10-24 05:11] LABS: Troponin I Only 3.26 NG/ML (0.00-0.045)
[2016-10-24 05:20] LABS: Band Neutrophils 6 % (0-10); Lymphocytes 13 % (20-55); Segmented Neutrophils 75 % (50-85); Total Cells Counted 100
[2016-10-24 05:23] LABS: Hypochromasia 1+; Microcytosis 1+
[2016-10-24 05:24] LABS: Burr Cells Few; Platelet Estimate Adequate
[2016-10-24] MEDS: MAGNESIUM SULF RIDER 1 GM in PREMIX 1 EACH IV PRN (05:31)
[2016-10-24] MEDS: fentaNYL INJ 1,250 MCG in SODIUM CHLORIDE 0.9% 225 ML IV SCH (05:49)
[2016-10-24] MEDS: SODIUM BICARB INJ 100 MEQ in SODIUM CHLORIDE 0.45% 1,000 ML IV SCH ×3 (06:10→19:08)
--- NOTE | 2016-10-24 07:11 | Pulmonology Progress Note ---
Pulmonary - PN: Subj Interval history: This 45-year-old man apparently had a multidrug overdose with cardiopulmonary arrest and 3 different codes. At present he is finishing his duration of arctic sun hypothermia protocol. He remains unresponsive. His pupils are dilated and fixed. He is requiring 100% oxygen and high level PEEP to keep a PO2 in the 50s. Exam (Progress Note) - Constitutional Vitals: Period Temp Pulse Resp BP Sys/Sequeira Pulse Ox Last 24 Hr 90.0 F-93.4 F 72-81 22-22 90-135/57-90 86-96 Exam: Unresponsive. Pupils dilated and fixed. Systolic blood pressure around 100 on pressors. Chest shows some rhonchi, equal breath sounds. Endotracheal tube in place. Heart normal rate rhythm no murmurs. Abdomen soft no masses. Bowel sounds present. Extremities no clubbing cyanosis edema. Results - Labs CBC & BMP: 10/24/16 04:00 10/24/16 04:00 Lab Results: I have reviewed the past 24 hour labs - Diagnostic Findings Procedure: Chest x-ray: image reviewed by me (Patchy bilateral infiltrates worse on the right. ET tube good position.) Assessment and Plan (1) Acute renal failure Status: Acute Assessment and plan: Creatinine is 3.9 slightly better than yesterday. Defer to nephrology. 10/24/2016 creatinine 3.7 stable. Current Visit: Yes Qualifiers: Acute renal failure type: with acute tubular necrosis Qualified Code(s): N17.0 - Acute kidney failure with tubular necrosis (2) Acute respiratory failure with hypoxia Status: Acute Assessment and plan: Patient remains severely acidotic. He is getting bicarb. I will turn up minute ventilation a little. The acidosis is combined respiratory and metabolic. 10/24/2016 PO2 is 56 on 100% oxygen with 10 of PEEP. Will increase PEEP a little. We have gotten his pH corrected. Current Visit: Yes (3) Anoxic brain injury Status: Acute Assessment and plan: His pupils are dilated and fixed. He is totally unresponsive. He is on Arctic sun. Giving him a couple of days to see if his brain will come around. However prognosis appears poor to me. 10/24/2016 neurology is seeing an evaluation for the severity of hypoxic brain injury Current Visit: Yes (4) Cardiac arrest Status: Acute Assessment and plan: He has apparently had 3 cardiac arrest. The cause of the arrest was felt to the polysubstance abuse. No significant coronary disease found at cath. 10/24/2016 cardiology following. Current Visit: Yes (5) Polysubstance abuse Status: Acute Assessment and plan: Likely the cause of his arrest. Current Visit: Yes (6) Diabetes mellitus Status: Chronic Assessment and plan: Sliding scale insulin. 10/24/2016 glucose in 150-250 range. Fair control. Current Visit: No Qualifiers: Diabetes mellitus type: type 2
[2016-10-24] MEDS: CLINDAMYCIN INJ 600 MG in PREMIX 1 EACH IV SCH ×3 (07:30→23:58)
[2016-10-24] MEDS: HYDROCORTISONE 100 MG VIAL IV SCH ×3 (07:30→23:55)
--- NOTE | 2016-10-24 07:32 | XRay Report ---
Referring Physician: Flora Acuña MD Exam: XR chest 1V portable Date: October 24, 2016 at 3:22 AM Reason: Intubated Comparison: Chest one view portable October 23, 2016 Findings: An endotracheal tube and feeding tube are again place. The distal tip of the endotracheal tube projects 5 cm above the valentin. The heart is stable in size. There are patchy opacities within both lungs, most prominent within the right upper lobe. These opacities have slightly increased overall and are concerning for pneumonia and atelectasis. There could also be pulmonary edema. No pneumothorax or definite pleural fluid is identified. No acute osseous process is seen. Impression: There are patchy opacities within both lungs which have overall slightly increased. This is concerning for pneumonia and atelectasis, but there could also be pulmonary edema. PROCEDURE INTERPRETED AT [facility] DEPARTMENT OF RADIOLOGY Final Report Signed by: Dr. Norm Brooks
[2016-10-24] MEDS: INSULIN REGULAR 100 UNIT/ML SUBCUT SCH ×4 (08:00→23:57)
[2016-10-24] MEDS: PANTOPRAZOLE 40 MG VIAL IV SCH ×2 (08:45→21:26)
[2016-10-24] MEDS: NOREPINEPHRINE 16 MG in SODIUM CHLORIDE 0.9% 234 ML IV SCH ×2 (09:00→18:45)
[2016-10-24] MEDS: MEROPENEM 500 MG in SODIUM CHLORIDE 0.9% 100 ML IV SCH ×2 (09:05→21:29)
[2016-10-24 09:37] LABS: Basophils % 0.2 % (0.0-0.8); Eosinophils % 0.2 % (0.00-10.9); Hematocrit 31.1 VOL% (42.0-52.0); Hemoglobin 10.8 GM/DL (14.0-18.0); Immature Granulocytes % 0.7 %; Immature Granulocytes Absolute 0.03 #; Lymphocytes # 0.7 10*3/uL (1.4-4.0); Lymphocytes % 16.8 % (21.2-54.2); Mean Corpuscular HGB Conc 34.7 GM/DL (32-36); Mean Corpuscular Hemoglobin 30 PG (27-34); Mean Corpuscular Volume 85.7 FL (87-102); Mean Platelet Volume 10.1 FL (9.6-12.0); Monocytes # 0.2 10*3/uL (0.11-0.8); Monocytes % 3.6 % (1.7-12.7); Neutrophils # 3.5 10*3/uL (1.4-7.4); Neutrophils % 78.5 % (38.7-73.9); Platelet Count 121 T/CUMM (130-400); Red Blood Count 3.63 MC/CUMM (3.8-5.5); Red Cell Distribution Width 12.6 % (9.3-17.3); White Blood Count 4.4 T/CUMM (4-12)
[2016-10-24 09:47] LABS: INR 1.5; PT Patient Result 15.9 SECS; Partial Thromboplastin Time 36.4 SECS (0-40)
--- NOTE | 2016-10-24 10:00 | Hospitalist Progress Note ---
Assessment and Plan (1) Anoxic brain injury Status: Acute Assessment and plan: 1)S/P multiple cardiac arrests- no sig CAD at cath on admission- warming phase of cooling protocol should be complete this afternoon. Prognosis grim. Dr escoto pursuing CT head and EEG. Was positive for PCP and meth per H&P- his aunt was not aware of this when I told her. She says he had been out of his narcotics and taking tramadol in the day or 2 before this event and that he had had seizure-like spells with increasing frequency over the last weeks. 2)diabetes- glucose under better control- on SSI now. 3)respiratory failure 4)sepsis- on pressors, BCx now with GNR. change levaquin to Merrem, continue with clinda as he may have aspiration injury to lungs. 5)mixed resp and metabolic acidosis- on bicarb, vent changes. 6)MYLES- creatinine stable at 3.7. injury due to anoxic injury at time of arrests , UOP poor. Monitor. 7)hypokalemia/hypomagnesemia/hypocalcemia-- replace. recheck albumin to calculate calcium replacement. Current Visit: Yes (2) Thrombocythemia Status: Acute Current Visit: No (3) Cardiac arrest Status: Acute Current Visit: Yes (4) Acute [place] Status: Acute Current Visit: Yes (5) Polysubstance abuse Status: Acute Current Visit: Yes (6) Hypertension Status: Chronic Current Visit: Yes (7) Acidemia Status: Acute Current Visit: Yes (8) Acute respiratory failure with hypoxia Status: Acute Current Visit: Yes (9) Acute renal failure Status: Acute Current Visit: Yes Qualifiers: Acute renal failure type: with acute tubular necrosis Qualified Code(s): N17.0 - Acute kidney failure with tubular necrosis (10) Diabetes mellitus Status: Chronic Current Visit: No Qualifiers: Diabetes mellitus type: type 2 Hospitalist: Subjective Interval history: Mr Lopez is in warming phase of arctic sun. Overnight he has required increased pressors, and his sats are in the 80s despite FIO2 1.0 and increase in PEEP to 12.5. Coffee grounds from NGT. Poor UOP, creatinine increased. Pupils fixed and dilated. I spoke to his aunt last night and again in person this morning. He has children who have come to visit she says but I have not met them. He does not have living will. She says that she and his other aunts are supporting his children and will help them if it comes to making decisions about end of life care. He is unmarried. She says she knows that his outlook is grim. Exam - Constitutional Vitals: Period Temp Pulse Resp BP Sys/Sequeira Pulse Ox Last 24 Hr 90.0 F-95 F 72-87 20-22 70-136/36-90 83-96 General appearance: over weight (sedated, paralyzed on vent) - Head Head exam: Present: normocephalic, atraumatic - Eye Pupils: Present: dilated, fixed - Respiratory Respiratory exam: Present: clear to auscultation bilaterally - Cardiovascular Cardiovascular exam: Present: regular rate and rhythm - GI/Abdominal GI/Abdominal exam: Present: hypoactive bowel sounds - Extremities Exam Extremities exam: Absent: edema - Skin Skin exam: Present: other (cool) Results - Labs CBC & BMP: 10/24/16 08:59 10/24/16 04:00 Lab Results: I have reviewed the past 24 hour labs
[2016-10-24 10:02] LABS: Band Neutrophils 13 % (0-10); Hypochromasia Slight; Lymphocytes 13 % (20-55); Metamyelocytes 2 %; Nucleated Red Blood Cells 1 (0-5); Segmented Neutrophils 63 % (50-85); Total Cells Counted 100
[2016-10-24 10:03] LABS: Burr Cells Few; Microcytosis 1+; Platelet Estimate Adequate
[2016-10-24 10:37] LABS: Osmolality,Calculated 289.1 MOS/KG (273-304); Potassium 3.8 MMOL/L (3.5-5.1)
[2016-10-24 10:38] LABS: Calcium 5.8 MG/DL (8.5-10.1)
[2016-10-24] MEDS ORDERED: CALCIUM GLUCONATE 1,000 MG in SODIUM CHLORIDE 0.9% 100 ML IV ONE (12:00)
[2016-10-24] MEDS: INSULIN REGULAR 100 UNIT/ML IV SCH ×3 (12:05→16:10)
--- NOTE | 2016-10-24 14:07 | EKG Report ---
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
[2016-10-24 14:11] LABS: ABG Base Excess -9.8 MMOL/L (-2.5-2.5); ABG HCO3 17.1 MMOL/L (20-26); ABG Oxygen Saturation 83.4 % (95-100); ABG PCO2 41.2 MM HG (35-48); ABG PH 7.236 (7.35-7.45); ABG TCO2 18.4 MMOL/L (23-27); Basophils % 0.2 % (0.0-0.8); Hematocrit 30.8 VOL% (42.0-52.0); Hemoglobin 10.6 GM/DL (14.0-18.0); Immature Granulocytes % 0.6 %; Immature Granulocytes Absolute 0.04 #; Lymphocytes # 0.5 10*3/uL (1.4-4.0); Lymphocytes % 7.2 % (21.2-54.2); Mean Corpuscular HGB Conc 34.4 GM/DL (32-36); Mean Corpuscular Hemoglobin 30 PG (27-34); Mean Corpuscular Volume 86.5 FL (87-102); Mean Platelet Volume 10.5 FL (9.6-12.0); Monocytes # 0.3 10*3/uL (0.11-0.8); NRBC # 0.02 10*3/uL; Neutrophils # 5.4 10*3/uL (1.4-7.4); Platelet Count 118 T/CUMM (130-400); Red Blood Count 3.56 MC/CUMM (3.8-5.5); Red Cell Distribution Width 12.9 % (9.3-17.3); White Blood Count 6.2 T/CUMM (4-12)
[2016-10-24 14:26] LABS: INR 1.5; PT Patient Result 16.1 SECS; Partial Thromboplastin Time 37.1 SECS (0-40)
[2016-10-24 14:40] LABS: Albumin 1.8 G/DL (3.4-5.0); Bilirubin,Total 0.7 MG/DL (0.2-1.0); Magnesium 1.8 MG/DL (1.8-2.4); Osmolality,Calculated 291.1 MOS/KG (273-304); Phosphorous 6.1 MG/DL (2.5-4.9); Potassium 4.4 MMOL/L (3.5-5.1); Total Protein 4.4 G/DL (6.4-8.3)
--- NOTE | 2016-10-24 15:49 | XRay Report ---
Referring Physician: Emelia Ohara Exam: XR chest 1V portable Date: October 24, 2016 at 1:50 PM Reason: Status post CODE BLUE, hypothermia rewarming protocol Comparison: Chest one view portable October 24, 2016 at 3:22 AM Findings: An endotracheal tube is in place with its distal tip projecting 3 cm above the valentin. A feeding tube is seen extending into the stomach and beyond the [id number]. The heart is stable in size. There are patchy opacities within both lungs, mainly in the perihilar regions. This is concerning for pneumonia and atelectasis, but there could also be pulmonary edema. No pneumothorax or pleural effusion is identified. No acute osseous process is seen. Impression: The distal tip of the endotracheal tube now projects 3 cm above the valentin. The study is otherwise similar to before. PROCEDURE INTERPRETED AT [facility] DEPARTMENT OF RADIOLOGY Final Report Signed by: Dr. Norm Brooks
--- NOTE | 2016-10-24 17:44 | Neurology Progress Note ---
Neurology - PN : Subjective Interval history: Pt seems to be doing about the same. Off of sedation but hasnt improved at all. Not waking up. Not responding to deep painful stimuli. Exam (Progress Note) - Constitutional Vitals: Period Temp Pulse Resp BP Sys/Sequeira Pulse Ox Last 24 Hr 90.0 F-98.5 F 72-105 20-22 70-136/36-90 82-94 Exam: GENERAL: Patient is in no acute distress. NECK: Neck is supple. There is no JVD. No carotid bruits present. No thyroid masses. CVS: First and second heart sounds are normal. There is no S3 present. Regular rate and rhythm. RESPIRATORY: Lungs are clear to auscultation without any rales or rhonchi. ABDOMEN: Soft and non-tender. Bowel sounds are present. There is no hepatosplenomegaly. EXT: There is no palpable edema. Peripheral pulses are present. Skin: No rashes Central Nervous system: General: Sedated Speech: None Comprehension: None Facial expressions: Normal Cranial Nerves: Pupils are small and sluggish. Doll's head eye movements are impaired. Motor: Strength cannot be assessed Sensory: Cannot be assessed Reflexes: Absent and symmetric Cerebellar function: Cannot be assessed Toes: Equivocal Gait: Cannot be assessed Results - Labs CBC & BMP: 10/24/16 14:00 10/24/16 14:00 Assessment and Plan (1) Anoxic brain injury Status: Acute Assessment and plan: Hypoxic/anoxic brain injury secondary to cardiopulmonary arrest Continue current supportive management CT head and EEG in a.m Prognosis is guarded. Current Visit: Yes
[2016-10-24] MEDS ORDERED: HEPARIN/NACL 0.9% 2 UNITS/ML 500 ML IV ONE (18:58)
[2016-10-24 21:09] LABS: Basophils % 0.1 % (0.0-0.8); Hematocrit 29.2 VOL% (42.0-52.0); Hemoglobin 9.8 GM/DL (14.0-18.0); Immature Granulocytes % 0.9 %; Immature Granulocytes Absolute 0.08 #; Lymphocytes # 0.5 10*3/uL (1.4-4.0); Lymphocytes % 5.1 % (21.2-54.2); Mean Corpuscular HGB Conc 33.6 GM/DL (32-36); Mean Corpuscular Hemoglobin 30 PG (27-34); Mean Platelet Volume 10.6 FL (9.6-12.0); Monocytes # 0.4 10*3/uL (0.11-0.8); Monocytes % 3.8 % (1.7-12.7); NRBC # 0.02 10*3/uL; Neutrophils # 8.4 10*3/uL (1.4-7.4); Neutrophils % 90.1 % (38.7-73.9); Platelet Count 118 T/CUMM (130-400); Red Blood Count 3.32 MC/CUMM (3.8-5.5); Red Cell Distribution Width 13.2 % (9.3-17.3); White Blood Count 9.4 T/CUMM (4-12)
[2016-10-24 21:22] LABS: INR 1.5; PT Patient Result 16.4 SECS; Partial Thromboplastin Time 38.3 SECS (0-40)
[2016-10-24 21:41] LABS: Magnesium 1.7 MG/DL (1.8-2.4); Osmolality,Calculated 300.1 MOS/KG (273-304); Potassium 5.2 MMOL/L (3.5-5.1)
[2016-10-24 21:46] LABS: Calcium 5.7 MG/DL (8.5-10.1)
[2016-10-24] MEDS ORDERED: MAGNESIUM SULF RIDER 4 GM in PREMIX 1 EACH IV PRN (21:53)
[2016-10-24] MEDS ORDERED: MAGNESIUM SULF RIDER 2 GM in PREMIX 1 EACH IV PRN (21:53)
[2016-10-24] MEDS ORDERED: POTASSIUM CHLORIDE RIDER 10 MEQ in PREMIX 1 EACH IV PRN (21:53)
[2016-10-24] MEDS ORDERED: CALCIUM GLUCONATE 2,000 MG in SODIUM CHLORIDE 0.9% 100 ML IV ONE (23:00)
[2016-10-25 00:04] LABS: CKMB % 8.3 %
[2016-10-25 00:06] LABS: Troponin I Only 2.49 NG/ML (0.00-0.045)
[2016-10-25] MEDS: PHENYLEPHRINE INJ 160 MG in SODIUM CHLORIDE 0.9% 234 ML IV SCH ×2 (03:10→07:00)
[2016-10-25] MEDS: NOREPINEPHRINE 16 MG in SODIUM CHLORIDE 0.9% 234 ML IV SCH ×3 (03:34→21:55)
[2016-10-25] MEDS: INSULIN REGULAR 100 UNIT/ML SUBCUT SCH (03:50)
[2016-10-25 04:08] LABS: ABG Base Excess -8.9 MMOL/L (-2.5-2.5); ABG HCO3 17.2 MMOL/L (20-26); ABG Oxygen Saturation 92.9 % (95-100); ABG PCO2 36.6 MM HG (35-48); ABG PO2 77.9 MM HG (80-95); ABG TCO2 15.9 MMOL/L (23-27)
[2016-10-25 04:15] LABS: Basophils % 0.3 % (0.0-0.8); Hematocrit 28.6 VOL% (42.0-52.0); Hemoglobin 9.6 GM/DL (14.0-18.0); Immature Granulocytes % 1.4 %; Immature Granulocytes Absolute 0.18 #; Lymphocytes # 0.5 10*3/uL (1.4-4.0); Lymphocytes % 3.9 % (21.2-54.2); Mean Corpuscular HGB Conc 33.6 GM/DL (32-36); Mean Corpuscular Hemoglobin 30 PG (27-34); Mean Platelet Volume 11.2 FL (9.6-12.0); Monocytes # 0.6 10*3/uL (0.11-0.8); Monocytes % 4.4 % (1.7-12.7); NRBC # 0.03 10*3/uL; Neutrophils # 11.7 10*3/uL (1.4-7.4); Platelet Count 126 T/CUMM (130-400); Red Blood Count 3.25 MC/CUMM (3.8-5.5); Red Cell Distribution Width 13.5 % (9.3-17.3)
[2016-10-25 04:26] LABS: INR 1.5; PT Patient Result 16.3 SECS; Partial Thromboplastin Time 38.7 SECS (0-40)
[2016-10-25] MEDS: SODIUM BICARB INJ 100 MEQ in SODIUM CHLORIDE 0.45% 1,000 ML IV SCH ×3 (04:28→14:32)
[2016-10-25 04:58] LABS: Calcium 6.3 MG/DL (8.5-10.1); Magnesium 2.3 MG/DL (1.8-2.4); Osmolality,Calculated 300.4 MOS/KG (273-304)
[2016-10-25 05:10] LABS: Band Neutrophils 24 % (0-10); Lymphocytes 7 % (20-55); Platelet Estimate Adequate; Segmented Neutrophils 61 % (50-85)
[2016-10-25 05:12] LABS: Burr Cells Slight
[2016-10-25 05:14] LABS: Hypochromasia 1+; Microcytosis Slight
[2016-10-25] MEDS ORDERED: INSULIN REGULAR 100 UNIT/ML SUBCUT ONE (05:21)
[2016-10-25] MEDS: DOPamine 800 MG/250 ML PREMIX IV SCH ×2 (05:31→16:50)
--- NOTE | 2016-10-25 07:08 | Pulmonology Progress Note ---
Pulmonary - PN: Subj Interval history: This 45-year-old man apparently had a multidrug overdose with cardiopulmonary arrest and 3 different codes. At present he is finishing his duration of [facility] hypothermia protocol. He remains unresponsive. His pupils are dilated and fixed. He is requiring 100% oxygen and high level PEEP to keep a PO2 in the 50s. 10/25/2016 patient remains unresponsive. Sedation has been withdrawn. Body temperature up to 98.4. Pupils remain dilated and nonreactive. Patient is to get an EEG today. PO2 is up into the 70s. I will try to reduce FiO2 a little bit. We just need oxygen saturation around 90%. Exam (Progress Note) - Constitutional Vitals: Period Temp Pulse Resp BP Sys/Sequeira Pulse Ox Last 24 Hr 93.9 F-99.2 F 83-111 20-20 70-136/36-69 82-98 Exam: Unresponsive. Pupils dilated and fixed. Systolic blood pressure around 120 on pressors. Chest shows some rhonchi, equal breath sounds. Endotracheal tube in place. Heart normal rate rhythm no murmurs. Abdomen soft no masses. Bowel sounds present. Extremities no clubbing cyanosis edema. Little change from yesterday Results - Labs CBC & BMP: 10/25/16 04:00 10/25/16 04:00 Lab Results: I have reviewed the past 24 hour labs - Diagnostic Findings Procedure: Chest x-ray: image reviewed by me (ET tube good position. Infiltrate right lung about the same.) Assessment and Plan (1) Acute renal failure Status: Acute Assessment and plan: Creatinine is 3.9 slightly better than yesterday. Defer to nephrology. 10/24/2016 creatinine 3.7 stable. 10/25/2016 creatinine 4.7. Urine output has begun to lemon picker. Current Visit: Yes Qualifiers: Acute renal failure type: with acute tubular necrosis Qualified Code(s): N17.0 - Acute kidney failure with tubular necrosis (2) Acute respiratory failure with hypoxia Status: Acute Assessment and plan: Patient remains severely acidotic. He is getting bicarb. I will turn up minute ventilation a little. The acidosis is combined respiratory and metabolic. 10/24/2016 PO2 is 56 on 100% oxygen with 10 of PEEP. Will increase PEEP a little. We have gotten his pH corrected. 10/25/2016 PO2 now 77 on 100% with 12 of PEEP. We will try to reduce FiO2 to 80% . We just need a PO2 in the mid to upper 50s which would be an O2 sat around 90 %. Current Visit: Yes (3) Anoxic brain injury Status: Acute Assessment and plan: His pupils are dilated and fixed. He is totally unresponsive. He is on Arctic sun. Giving him a couple of days to see if his brain will come around. However prognosis appears poor to me. 10/24/2016 neurology is seeing an evaluation for the severity of hypoxic brain injury 10/25/2016 unresponsive. Awaiting further neurologic assessment of brain injury. EEG to be done on 28 October after he has been rewarmed for 3 days. Current Visit: Yes (4) Cardiac arrest Status: Acute Assessment and plan: He has apparently had 3 cardiac arrest. The cause of the arrest was felt to the polysubstance abuse. No significant coronary disease found at cath. 10/24/2016 cardiology following. 10/25/2016 patient presently on 3 pressors but his blood pressure is a little better. Making urine a little better. Totally unresponsive. Apparent significant hypoxic brain injury. Current Visit: Yes (5) Polysubstance abuse Status: Acute Assessment and plan: Likely the cause of his arrest. Current Visit: Yes (6) Diabetes mellitus Status: Chronic Assessment and plan: Sliding scale insulin. 10/24/2016 glucose in 150-250 range. Fair control. 10/25/2016 blood sugars look okay. Current Visit: No Qualifiers: Diabetes mellitus type: type 2
[2016-10-25] MEDS: CLINDAMYCIN INJ 600 MG in PREMIX 1 EACH IV SCH ×3 (07:23→23:18)
[2016-10-25] MEDS: HYDROCORTISONE 100 MG VIAL IV SCH ×3 (07:24→23:17)
[2016-10-25] MEDS ORDERED: INSULIN REGULAR 100 UNIT/ML SUBCUT SCH (08:00)
--- NOTE | 2016-10-25 08:30 | XRay Report ---
XR chest 1V portable Indication: Intubated Comparison: Chest x-ray dated October 24, 2016 Technique: Single frontal view of the chest Findings: Endotracheal tube stable in configuration. Cardiac mediastinal silhouette appears grossly unchanged. Grossly unchanged right lung and left infrahilar opacification. Osseous and surrounding soft tissue structures appear grossly unchanged. IMPRESSION: No significant interval change. PROCEDURE INTERPRETED AT [facility] DEPARTMENT OF RADIOLOGY Final Report Signed by: Dr Storm Way
[2016-10-25] MEDS: PANTOPRAZOLE 40 MG VIAL IV SCH ×2 (08:35→21:23)
[2016-10-25] MEDS ORDERED: INFLUENZA VIRUS VACCINE 0.5 ML SYRINGE IM ONE (09:00)
[2016-10-25] MEDS ORDERED: PNEUMOCOCCAL VACCINE (23 VALENT) 0.5 ML VIAL IM ONE (09:00)
--- NOTE | 2016-10-25 09:01 | Hospitalist Progress Note ---
Assessment and Plan (1) Anoxic brain injury Status: Acute Assessment and plan: 1)s/p multiple cardiac arrests- no sig CAD on admission. he has completed the warming phase and remains unresponsive with fixed pupils. Dr Tate planning EEG and head CT at some point. 2)DM- blood sugar in 400s this morning. begin lantus and high intensity SSI 3)respiratory failure- pO2 improved this morning. 4)sepsis due to GNR in 1/2 Bcx- on Merrem and clinda. Has GPC in sputum. He is on dopamine, levophed and merry. 5)acidosis- mixed resp and metobolic. on bicarb infusion- increase rate to 150 and monitor UOP. 6)MYLES- creatinine up to 4.7. UOP better with increased perfusion pressure. consult nephrology. 7)electrolytes- potassium up to 5. Mag 2.3. calcium 6.3 after replacement yesterday, albumin 1.8 yesterday. Current Visit: Yes (2) Thrombocythemia Status: Acute Current Visit: No (3) Cardiac arrest Status: Acute Current Visit: Yes (4) Acute [place] Status: Acute Current Visit: Yes (5) Polysubstance abuse Status: Acute Current Visit: Yes (6) Hypertension Status: Chronic Current Visit: Yes (7) Acidemia Status: Acute Current Visit: Yes (8) Acute respiratory failure with hypoxia Status: Acute Current Visit: Yes (9) Acute renal failure Status: Acute Current Visit: Yes Qualifiers: Acute renal failure type: with acute tubular necrosis Qualified Code(s): N17.0 - Acute kidney failure with tubular necrosis (10) Diabetes mellitus Status: Chronic Current Visit: No Qualifiers: Diabetes mellitus type: type 2 Hospitalist: Subjective Interval history: Mr Lopez remains in critical condition. He reached goal temp at 2pm yesterday. He has since become more hypotensive and is on 3 pressors. His SBP is around 135 with MAP around 80 right now. His UOP picks up with increased BP. Sats better this morning, so Dr Rich decreased FIO2 to .8 and kept PEEP at 12.5. He has not moved or responded to neuro exam. Pupils fixed and dilated. Exam - Constitutional Vitals: Period Temp Pulse Resp BP Sys/Sequeira Pulse Ox Last 24 Hr 95 F-99.2 F 87-111 20-20 70-139/36-66 82-98 General appearance: over weight - Eye Eye exam: Absent: EOMI Pupils: Present: fixed. Absent: ZO - Respiratory Respiratory exam: Present: clear to auscultation bilaterally - Cardiovascular Cardiovascular exam: Present: regular rate and rhythm. Absent: systolic murmur - GI/Abdominal GI/Abdominal exam: Present: hypoactive bowel sounds, soft - Extremities Exam Extremities exam: Absent: edema - Skin Skin exam: Present: warm. Absent: rash Results - Labs CBC & BMP: 10/25/16 04:00 10/25/16 04:00 Lab Results: I have reviewed the past 24 hour labs
[2016-10-25] MEDS: INSULIN GLARGINE 100 UNIT/ML SUBCUT SCH (09:25)
--- NOTE | 2016-10-25 09:27 | EKG Report ---
Stationary ECG Study 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
[2016-10-25] MEDS: MEROPENEM 500 MG in SODIUM CHLORIDE 0.9% 100 ML IV SCH ×2 (10:16→21:57)
[2016-10-25] MEDS: INSULIN LISPRO 100 UNIT/ML SUBCUT SCH ×3 (12:14→20:16)
--- NOTE | 2016-10-25 15:48 | Neurology Progress Note ---
Neurology - PN : Subjective Interval history: Patient has achieved normal body temperature but has not shown any neurological improvement. His pupils are fixed and dilated. No doll's head eye movement seen. He is not breathing over vent. Exam (Progress Note) - Constitutional Vitals: Period Temp Pulse Resp BP Sys/Sequeira Pulse Ox Last 24 Hr 98.1 F-99.2 F 99-111 20-20 101-139/42-71 88-98 Exam: GENERAL: Patient is in no acute distress. NECK: Neck is supple. There is no JVD. No carotid bruits present. No thyroid masses. CVS: First and second heart sounds are normal. There is no S3 present. Regular rate and rhythm. RESPIRATORY: Lungs are clear to auscultation without any rales or rhonchi. ABDOMEN: Soft and non-tender. Bowel sounds are present. There is no hepatosplenomegaly. EXT: There is no palpable edema. Peripheral pulses are present. Skin: No rashes Central Nervous system: General: Off of sedation Speech: None Comprehension: None Facial expressions: Normal Cranial Nerves: Pupils are small and sluggish. Doll's head eye movements are impaired. Motor: Strength cannot be assessed Sensory: Cannot be assessed Reflexes: Absent and symmetric Cerebellar function: Cannot be assessed Toes: Equivocal Gait: Cannot be assessed Results - Labs CBC & BMP: 10/25/16 04:00 10/25/16 04:00 Assessment and Plan (1) Anoxic brain injury Status: Acute Assessment and plan: Severe hypoxic/anoxic brain injury secondary to cardiopulmonary arrest Continue current supportive management CT head and EEG in a.m Prognosis is poor. Family is not available at this time to discuss Current Visit: Yes
[2016-10-26] MEDS: SODIUM BICARB INJ 100 MEQ in SODIUM CHLORIDE 0.45% 1,000 ML IV SCH ×2 (00:11→08:30)
[2016-10-26] MEDS: INSULIN LISPRO 100 UNIT/ML SUBCUT SCH ×4 (00:46→12:11)
[2016-10-26] MEDS: PHENYLEPHRINE INJ 160 MG in SODIUM CHLORIDE 0.9% 234 ML IV SCH (04:11)
[2016-10-26 04:15] LABS: ABG Base Excess 4.1 MMOL/L (-2.5-2.5); ABG HCO3 28.1 MMOL/L (20-26); ABG Oxygen Saturation 96.2 % (95-100); ABG PCO2 36.2 MM HG (35-48); ABG PH 7.488 (7.35-7.45); ABG PO2 86.9 MM HG (80-95); ABG TCO2 24.7 MMOL/L (23-27)
[2016-10-26 04:17] LABS: Basophils # 0.1 10*3/uL (0.0-0.2); Basophils % 0.4 % (0.0-0.8); Hematocrit 24.6 VOL% (42.0-52.0); Hemoglobin 8.4 GM/DL (14.0-18.0); Immature Granulocytes % 0.7 %; Immature Granulocytes Absolute 0.08 #; Lymphocytes # 0.6 10*3/uL (1.4-4.0); Lymphocytes % 4.7 % (21.2-54.2); Mean Corpuscular HGB Conc 34.1 GM/DL (32-36); Mean Corpuscular Hemoglobin 29 PG (27-34); Mean Platelet Volume 10.7 FL (9.6-12.0); Monocytes # 0.6 10*3/uL (0.11-0.8); Monocytes % 5.2 % (1.7-12.7); NRBC # 0.02 10*3/uL; Neutrophils # 10.8 10*3/uL (1.4-7.4); Platelet Count 118 T/CUMM (130-400); Red Blood Count 2.86 MC/CUMM (3.8-5.5); Red Cell Distribution Width 13.2 % (9.3-17.3); White Blood Count 12.2 T/CUMM (4-12)
[2016-10-26 04:47] LABS: Band Neutrophils 5 % (0-10); Hypochromasia 1+; Lymphocytes 4 % (20-55); Microcytosis Slight; Myelocytes 1 %; Ovalocytes Slight; Platelet Estimate Normal; Segmented Neutrophils 84 % (50-85); Total Cells Counted 100
[2016-10-26 04:54] LABS: Albumin 1.5 G/DL (3.4-5.0); Bilirubin,Total 0.8 MG/DL (0.2-1.0); Calcium 6.2 MG/DL (8.5-10.1); Magnesium 2.1 MG/DL (1.8-2.4); Osmolality,Calculated 311.7 MOS/KG (273-304); Phosphorous 3.9 MG/DL (2.5-4.9); Potassium 3.1 MMOL/L (3.5-5.1); Total Protein 4.1 G/DL (6.4-8.3)
--- NOTE | 2016-10-26 06:16 | Pulmonology Progress Note ---
Pulmonary - PN: Subj Interval history: The patient is a 45-year-old that apparently had a multiple drug overdose and had a cardiopulmonary arrest. He apparently required CPR several times. He has been on the ventilator and did go through the [facility] hypothermia protocol and is now warmed up. He is still unresponsive and has fixed pupils. He is not making any effort to move. He is still on a high FiO2 although his chest x-ray looks a little better. He is being evaluated by neurology and will have a EEG today. His blood pressure and heart rate are stable on the ventilator. Exam (Progress Note) - Constitutional Vitals: Period Temp Pulse Resp BP Sys/Sequeira Pulse Ox Last 24 Hr 98.3 F-98.8 F 102-111 20-28 119-156/57-84 93-98 General appearance: normal weight, other (The patient is unresponsive on the ventilator) - Head Head exam: Present: normal inspection, normocephalic - Eye Eye exam: Absent: scleral icterus Pupils: Present: dilated, fixed - ENT ENT exam: Present: normal exam, other (ET tube is in good position) - Neck Neck exam: Present: normal inspection. Absent: lymphadenopathy, thyromegaly - Respiratory Respiratory exam: Present: rhonchi (He has good breath sounds bilaterally with some rhonchi.) - Cardiovascular Cardiovascular exam: Present: regular rate and rhythm. Absent: gallop, systolic murmur - GI/Abdominal GI/Abdominal exam: Present: normal bowel sounds, soft. Absent: organomegaly, tenderness - Extremities Exam Extremities exam: Absent: calf tenderness, edema - Neurological Exam Neurological exam: Present: altered (The patient is still obtunded) - Skin Skin exam: Present: warm, dry Results - Labs CBC & BMP: 10/26/16 04:00 10/26/16 04:00 Labs: PO2 is 86 with a PCO2 of 36 and a pH of 7.48 - Diagnostic Findings Procedure: Chest x-ray: image reviewed by me, report reviewed by me (Chest x- ray shows mild perihilar infiltrates.) Assessment and Plan (1) Diabetes mellitus Status: Chronic Assessment and plan: Patient's glucoses are being monitored and he is getting sliding scale insulin. Glucose is 236 this morning Current Visit: No Qualifiers: Diabetes mellitus type: type 2 (2) Cardiac arrest Status: Acute Assessment and plan: The patient apparently had a cardiac arrest and prolonged CPR. He is status post cooling protocol and is still unresponsive Current Visit: Yes (3) Polysubstance abuse Status: Acute Assessment and plan: Patient apparently arrested after using multiple drugs Current Visit: Yes (4) Anoxic brain injury Status: Acute Assessment and plan: Patient is still not responding and will have a neurological workup Current Visit: Yes (5) Acute respiratory failure with hypoxia Status: Acute Assessment and plan: The patient has stiff noncompliant lungs and is requiring a high FiO2. Current Visit: Yes (6) Acute renal failure Status: Acute Assessment and plan: Patient's renal function has improved a little and his creatinine is down to 4.0. Current Visit: Yes Qualifiers: Acute renal failure type: with acute tubular necrosis Qualified Code(s): N17.0 - Acute kidney failure with tubular necrosis
[2016-10-26] MEDS: POTASSIUM CHLORIDE RIDER 20 MEQ in PREMIX 1 EACH IV PRN ×2 (06:30→08:35)
[2016-10-26] MEDS: CLINDAMYCIN INJ 600 MG in PREMIX 1 EACH IV SCH (07:05)
[2016-10-26] MEDS: HYDROCORTISONE 100 MG VIAL IV SCH (07:10)
--- NOTE | 2016-10-26 07:32 | XRay Report ---
Referring Physician: Flora Acuña MD Exam: XR chest 1V portable Date: October 26, 2016 at 3:07 AM Reason: Intubated, respiratory failure Comparison: Chest one view portable October 25, 2016 Findings: An endotracheal tube is in place with its distal tip projecting 4.5 cm above the valentin. A feeding tube is again in place. The heart is stable in size. There are persistent scattered opacities within both lungs, most prominent at the left lung base and in the right perihilar region. This is concerning for pneumonia and atelectasis, but there could also be pulmonary edema. No pneumothorax is identified, but there is mild left pleural fluid. The osseous structures appear stable. Impression: There are persistent opacities within both lungs with increased consolidation/atelectasis at the left lung base. PROCEDURE INTERPRETED AT [facility] DEPARTMENT OF RADIOLOGY Final Report Signed by: Dr. Norm Brooks
--- NOTE | 2016-10-26 07:43 | EKG Report ---
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
[2016-10-26] MEDS: INSULIN GLARGINE 100 UNIT/ML SUBCUT SCH (09:19)
[2016-10-26] MEDS: PANTOPRAZOLE 40 MG VIAL IV SCH (09:19)
[2016-10-26] MEDS: NOREPINEPHRINE 16 MG in SODIUM CHLORIDE 0.9% 234 ML IV SCH (09:25)
--- NOTE | 2016-10-26 09:41 | Neurology Progress Note ---
Neurology - PN : Subjective Interval history: Patient seems to be doing about the same. EEG is in progress. He has shown no signs of improvement. He is a still on vent. No spontaneous movement seen. Exam (Progress Note) - Constitutional Vitals: Period Temp Pulse Resp BP Sys/Sequeira Pulse Ox Last 24 Hr 98.4 F-98.9 F 102-110 20-28 119-156/57-84 93-98 Exam: GENERAL: Patient is in no acute distress. NECK: Neck is supple. There is no JVD. No carotid bruits present. No thyroid masses. CVS: First and second heart sounds are normal. There is no S3 present. Regular rate and rhythm. RESPIRATORY: Lungs are clear to auscultation without any rales or rhonchi. ABDOMEN: Soft and non-tender. Bowel sounds are present. There is no hepatosplenomegaly. EXT: There is no palpable edema. Peripheral pulses are present. Skin: No rashes Central Nervous system: General: Off of sedation Speech: None Comprehension: None Facial expressions: Normal Cranial Nerves: Pupils are small and sluggish. Doll's head eye movements are impaired. Motor: Strength cannot be assessed Sensory: Cannot be assessed Reflexes: Absent and symmetric Cerebellar function: Cannot be assessed Toes: Equivocal Gait: Cannot be assessed Results - Labs CBC & BMP: 10/26/16 04:00 10/26/16 04:00 Assessment and Plan (1) Anoxic brain injury Status: Acute Assessment and plan: Severe hypoxic/anoxic brain injury secondary to cardiopulmonary arrest Continue current supportive management Discussed in detail with the family this morning regarding prognosis which is going to be extremely poor They voiced understanding everything Current Visit: Yes
[2016-10-26] MEDS: MEROPENEM 500 MG in SODIUM CHLORIDE 0.9% 100 ML IV SCH (10:17)
[2016-10-26] MEDS ORDERED: LORazepam 2 MG/1 ML VIAL IV PRN (13:59)
[2016-10-26] MEDS ORDERED: MORPHINE 2 MG/1 ML SYRINGE IV PRN (13:59)
--- NOTE | 2016-10-26 14:39 | Discharge Summary ---
Hospital Course - Hospital Course Hospital Course: Mr Lopez presented after a series of cardiac arrests. He had respiratory failure. He had cath without sig disease. He had been found down at home. He was treated with [facility] protocol. He had sepsis with GNR in a blood culture and was treated with pressors and antibiotics. From the start he was unresponsive and had a poor neuro prognosis. Today his EEG showed no activity and Dr Tate explained to the family that his prognosis was very poor. They (his children are next of kin) felt strongly that he would not want to be kept alive any longer and requested terminal wean He at 14:32 with family at the bedside. - Cause of Cause of : sudden cardiac Diagnosis - Discharge Diagnosis (1) Anoxic brain injury Status: Acute (2) Thrombocythemia Status: Acute (3) Cardiac arrest Status: Acute (4) Acute [place] Status: Acute (5) Polysubstance abuse Status: Acute (6) Hypertension Status: Chronic (7) Acidemia Status: Acute (8) Acute respiratory failure with hypoxia Status: Acute (9) Acute renal failure Status: Acute (10) Diabetes mellitus Status: Chronic Discharge Plan - Discharge Medications No Action Gabapentin 600 mg PO TID Duloxetine HCl [Duloxetine] 60 mg PO BID Citalopram [CeleXA] 20 mg PO DAILY Amitriptyline [Elavil] 100 mg PO BEDTIME Insulin Detemir [Levemir FlexPen] 60 unit SUBCUT BEDTIME Insulin Detemir [Levemir FlexPen] 40 unit SUBCUT DAILY Ciprofloxacin Tab [Cipro Tab] 1 tablet PO BID Lidocaine [Lidocaine 5% Oint] 1 applic TOP BID PRN PRN Reason: Itching Escitalopram [Lexapro] 20 mg PO DAILY Lotion (Lubriderm) [Lubriderm Lotion] 1 applic TOP DIRECTED Glimepiride 2 mg PO AC BREAKFAST Ranitidine Tab [Zantac Tab] 150 mg PO BID Pregabalin [Lyrica] 50 mg PO TID Naproxen [Naproxen Tab] 500 mg PO Q12H PRN PRN Reason: Pain Oxycodone HCl/Acetaminophen [Oxycodone-Acetaminophen 10-325] 1 each PO Q6HR PRN PRN Reason: Pain Hydrocodone/Acetaminophen [Hydrocodon-Acetaminophn 10-325] 1 tablet PO TID Losartan [Cozaar] 50 mg PO DAILY Fluticasone 50 Mcg Nasal [place] [Flonase Nasal [place]] 1 spray BOTH NARES BID PRN PRN Reason: Allergy Symptoms Polyethylene Glycol Powder [Miralax] 17 gm PO BID - Follow Up or Referral - Forms/Instructions Exam - Constitutional Vitals: Period Temp Pulse Resp BP Sys/Sequeira Pulse Ox Last 24 Hr 98.1 F-98.9 F 50-107 0-28 95-156/7-84 0-98 Discharge Results Procedures and tests throughout hospitalization: Pending Orders 10/23/16 08:00 Blood Culture Stat 10/27/16 04:00 XR chest 1V portable IN AM 10/28/16 04:00 XR chest 1V portable IN AM NE EEG adult 41-60 min IN AM 10/29/16 04:00 XR chest 1V portable IN AM Labs on day of discharge: Labs from last 24 hours 10/26/16 10/26/16 10/26/16 11:39 07:59 04:10 WBC RBC Hgb Hct MCV MCH MCHC RDW Plt Count MPV Neut % (Auto) Lymph % (Auto) [place] % (Auto) Eos % (Auto) Baso % (Auto) Neut # (Auto) Lymph # (Auto) [place] # (Auto) Eos # (Auto) Baso # (Auto) Total Counted Immature Gran % Nucleated RBC % Immature Gran # Segmented Neutrophils Band Neutrophils Lymphocytes Monocytes Myelocytes Nucleated RBCs # Platelet Estimate Hypochromasia Microcytosis Ovalocytes Morphology Comment ABG pH ABG pCO2 ABG pO2 ABG HCO3 ABG Total CO2 ABG O2 Saturation ABG Base Excess Sodium Potassium Chloride Carbon Dioxide Anion Gap BUN Creatinine GFR Calculation BUN/Creatinine Ratio Glucose POC Glucose 198 H 168 H 268 H Calculated Osmolality Calcium Phosphorus Magnesium Total Bilirubin AST ALT Alkaline Phosphatase Total Protein Albumin Globulin Albumin/Globulin Ratio 10/26/16 10/26/16 10/26/16 04:00 04:00 04:00 WBC 12.2 H RBC 2.86 L Hgb 8.4 L Hct 24.6 L MCV 86.0 L MCH 29 MCHC 34.1 RDW 13.2 Plt Count 118 L MPV 10.7 Neut % (Auto) 89.0 H Lymph % (Auto) 4.7 L [place] % (Auto) 5.2 Eos % (Auto) 0.0 Baso % (Auto) 0.4 Neut # (Auto) 10.8 H Lymph # (Auto) 0.6 L [place] # (Auto) 0.6 Eos # (Auto) 0.0 Baso # (Auto) 0.1 Total Counted 100 Immature Gran % 0.7 Nucleated RBC % 0.2 Immature Gran # 0.08 Segmented Neutrophils 84 Band Neutrophils 5 Lymphocytes 4 L Monocytes 6 Myelocytes 1 Nucleated RBCs # 0.02 Platelet Estimate Normal Hypochromasia 1+ Microcytosis Slight Ovalocytes Slight Morphology Comment ABG pH 7.488 H ABG pCO2 36.2 ABG pO2 86.9 ABG HCO3 28.1 H ABG Total CO2 24.7 ABG O2 Saturation 96.2 ABG Base Excess 4.1 H Sodium 145 Potassium 3.1 L Chloride 104 Carbon Dioxide 27 Anion Gap 17.1 H BUN 56 H Creatinine 4.00 H GFR Calculation 22 BUN/Creatinine Ratio 14.00 Glucose 236 H POC Glucose Calculated Osmolality 311.7 H Calcium 6.2 L Phosphorus 3.9 Magnesium 2.1 Total Bilirubin 0.80 AST 511 H ALT 302 H Alkaline Phosphatase 198 H Total Protein 4.1 L Albumin 1.5 L Globulin 2.6 Albumin/Globulin Ratio 0.5 L 10/26/16 10/25/16 10/25/16 00:42 20:09 15:58 WBC RBC Hgb Hct MCV MCH MCHC RDW Plt Count MPV Neut % (Auto) Lymph % (Auto) [place] % (Auto) Eos % (Auto) Baso % (Auto) Neut # (Auto) Lymph # (Auto) [place] # (Auto) Eos # (Auto) Baso # (Auto) Total Counted Immature Gran % Nucleated RBC % Immature Gran # Segmented Neutrophils Band Neutrophils Lymphocytes Monocytes Myelocytes Nucleated RBCs # Platelet Estimate Hypochromasia Microcytosis Ovalocytes Morphology Comment ABG pH ABG pCO2 ABG pO2 ABG HCO3 ABG Total CO2 ABG O2 Saturation ABG Base Excess Sodium Potassium Chloride Carbon Dioxide Anion Gap BUN Creatinine GFR Calculation BUN/Creatinine Ratio Glucose POC Glucose 281 H 334 H 384 H Calculated Osmolality Calcium Phosphorus Magnesium Total Bilirubin AST ALT Alkaline Phosphatase Total Protein Albumin Globulin Albumin/Globulin Ratio Preliminary micro results at discharge 10/23/16 08:00 Blood Culture - Preliminary Blood No growth at 3 days DS: Provider Date of admission: 10/22/16 22:56 Primary care physician: Dandy Connelly MD Attending physician on admission: Rory Devlin DO Consults: 10/22/16 23:00 Consult to Physician [CONS] Routine Comment: pt on ventilator, s/p cardiopulmonary arrest Consulting Provider: Scot Villalobos Consulting Provider Notified: Yes When should Consulting Provider be notified: Now Person Notified: Dr. Villalobos Date Notified: 10/23/16 Time Notified: 07:00 10/23/16 00:59 Consult to Physician [CONS] Routine Comment: Consulting Provider: Kelvin Tate Consulting Provider Notified: Yes Consult to Specialist Group: Neurology When should Consulting Provider be notified: In am Person Notified: MK Date Notified: 10/23/16 Time Notified: 09:05 10/23/16 06:37 Consult to Cardiac Rehabilitation [CONS] Routine Reason for Cardiac Rehabilitation: Risk Factor Modification 10/25/16 09:10 Consult to Physician [CONS] Routine Comment: Consulting Provider: Consult to Specialist Group: Nephrology When should Consulting Provider be notified: Now Discharging clinician: Emelia Ohara MD
[2016-10-26 15:56] VITALS: BP 0/0
--- NOTE | 2016-10-27 16:47 | Electroencephalogram ---
HISTORY: A 45-year-old male with history of cardiopulmonary arrest and anoxic brain injury. INTRODUCTION: A digital EEG was performed using the standard 10/20 system of electrode placement wi th one channel of EKG monitoring. Photic stimulation is performed. DESCRIPTION OF RECORD: The background consists of 2 to 3 hertz extremely low amplitude bilaterally symmetrical rhythm. Photic stimulation does not elicit driving response. There are no focal, sharp -wave, spike, or wave activity seen. Heart rate 78 beats per minute. IMPRESSION: ABNORMAL EEG DUE TO EXTREMELY LOW AMPLITUDE GENERALIZED SLOWING. CLINICAL CORRELATION: This record is supportive of very severe encephalopathy, which could be secon edie to postictal state, posthypoxic state, metabolic disorder, diffuse CLOTH WIRE WEAVER insult, or increased int racranial pressure. No epileptiform/seizure activity seen. Clinical correlation is suggested.
== END 2016-10-26 14:32 | disposition expired | DRG 917 ==
LOC: EDUNIT# → EDSEX → EDBD → N.ED 20:45 → N.ICU 22:10 → SUATTDRO 23:12 → N.ICU 23:12
PROVIDERS: ADMIT Internal Medicine; ATTEND Internal Medicine